=== PATIENT | female | born 1990 | race Caucasian/White ===

== ENCOUNTER → 2016-04-27 | Outpatient (CLI) | payer OTHER ==
[2016-04-27 10:47] LABS: Glucose 72 mg/dL (74-99); Non-African American GFR(MDRD) >60 (>60 ml/min/1.73 sqM)
[2016-04-27 10:48] LABS: Appearance,Urine Clear (Clear); Bacteria,Urine Rare /hpf; Bilirubin,Urine Negative (Negative); CH 31.9; CHCM 35.2; Glucose,Urine (UA) Negative (Negative); HCT 36.1 % (34.0-46.0); HDW 2.47; HGB 12.1 gm/dL (11.4-16.0); Ketones,Urine Negative (Negative); Leukocyte Esterase,Urine Moderate (Negative); MCH 30.6 pg (25.0-35.0); MCHC 33.6 g/dL (31.0-37.0); MCV 91.1 fL (80.0-100.0); Mean Platelet Volume 7.4; Mucus,Urine Rare /hpf; Nitrite,Urine Negative (Negative); PH, Urine 6.5 (5.0-8.0); Particle Count 4790; Protein,Urine Negative (Negative); RBC 3.96 m/uL (3.80-5.40); RBC,Urine 32 /hpf (0-5); RDW 12.8 % (11.5-15.5); Specific Gravity,Urine 1.017 (1.001-1.035); Squamous Epithelial Cell,Urine 8 /hpf (0-4); UA Billing (MACRO vs. MICRO) MICRO; Urobilinogen,Urine <2.0 mg/dL (<2.0); WBC 9.9 k/uL (3.8-10.6); WBC,Urine 21 /hpf (0-5)
[2016-04-27 11:16] LABS: Hepatitis B Surface Ag Index 0.04
[2016-04-27 15:50] LABS: Treponemal Ab Non-Reactive (Non-Reactive)
[2016-04-28 09:39] LABS: HIV-1/HIV-2 Ab Screen NONREAC (NON REAC)
== END | disposition home or self-care (01) ==
LOC: LABWHC1 10:00
PROVIDERS: ATTEND Obstetrics & Gynecology
DX: O26.812 Pregnancy related exhaustion and fatigue, second trimester (principal); O99.89 Other specified diseases and conditions complicating pregnancy, childbirth and the puerperium; R35.0 Frequency of micturition; Z3A.00 Weeks of gestation of pregnancy not specified
CPT/HCPCS: 36415; 81001; 82565; 82947; 85027; 86762; 86777; 86778; 86780; 86850; 86900; 86901; 87077; 87086; 87186; 87340; 87389

== ENCOUNTER 2016-04-30 16:22 | Emergency (ER) | payer OTHER ==
[2016-04-30 16:42] VITALS: BP 114/70; PULSE 80; RESP 16; TEMP 97.3
--- NOTE | 2016-04-30 17:17 | ED ---
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 She had one previous episode years ago. She's had no fever or chills states that a recent UTI and so has some dysuria and was treated with Macrobid. She has no associated chest pain shortness breath denies being fatigued last 8 about 4 hours ago. Said no history of gestational diabetes or preeclampsia. She is had 2 previous normal deliveries. She denies any chest pain shortness breath palpitations. No spotting or cramping. - Related Data Previous Rx's Medication Instructions Recorded Cephalexin [Keflex] 500 mg PO Q8HR #30 cap 04/30/16 Allergies Allergy/AdvReac Type Severity Reaction Status Date / Time nifedipine [From Procardia] Allergy TACHYCARDIA Verified 04/30/16 16:53 Review of Systems ROS Statement: Those systems with pertinent positive or pertinent negative responses have been documented in the HPI. ROS Other: All systems not noted in ROS Statement are negative. Constitutional: Denies: fever, chills Eyes: Denies: eye pain ENT: Denies: ear pain, throat pain Respiratory: Denies: cough Cardiovascular: Denies: chest pain Gastrointestinal: Denies: abdominal pain, nausea, vomiting, constipation Skin: Denies: rash Neurological: Denies: headache, weakness, numbness Psychiatric: Denies: anxiety, depression Hematological/Lymphatic: Denies: easy bleeding, easy bruising Past Medical History Past Medical History: No Reported History Additional Past Medical History / Comment(s): uti History of Any Multi-Drug Resistant Organisms: None Reported Past Surgical History: Ear Surgery Past Psychological History: Bipolar, Depression Smoking Status: Current every day smoker Past Alcohol Use History: Occasional Past Drug Use History: None Reported General Exam Limitations: no limitations General appearance: alert, in no apparent distress Head exam: Present: atraumatic Eye exam: Present: PERRL, EOMI ENT exam: Present: normal oropharynx, mucous membranes moist, TM's normal bilaterally Respiratory exam: Present: normal lung sounds bilaterally Cardiovascular Exam: Present: normal rhythm, normal heart sounds GI/Abdominal exam: Present: soft. Absent: tenderness Extremities exam: Present: normal inspection Neurological exam: Present: alert, CN II-XII intact Psychiatric exam: Present: normal affect Skin exam: Present: warm, dry Course Vital Signs 04/30/16 16:39 Temperature 97.3 F L Pulse Rate 80 Respiratory 16 Rate Blood Pressure 114/70 O2 Sat by Pulse 100 Oximetry Medical Decision Making - Medical Decision Making EKG and laboratory satisfactory except for UTI she is 17 weeks this is classic of a vasovagal episode will change her to cephalexin. Urine culture shows Klebsiella pneumonia with good sensitivity. - Lab Data Result diagrams: 04/30/16 17:23 04/30/16 17:23 Lab Results 04/30/16 04/30/16 04/30/16 Range/Units 17:23 17:23 17:23 WBC 10.7 H (3.8-10.6) k/uL RBC 3.89 (3.80-5.40) m/uL Hgb 12.0 (11.4-16.0) gm/dL Hct 35.2 (34.0-46.0) % MCV 90.5 (80.0-100.0) fL MCH 30.7 (25.0-35.0) pg MCHC 33.9 (31.0-37.0) g/dL RDW 12.9 (11.5-15.5) % Plt Count 307 (150-450) k/uL Neutrophils % 73 % Lymphocytes % 19 % Monocytes % 6 % Eosinophils % 1 % Basophils % 0 % Neutrophils # 7.9 H (1.3-7.7) k/uL Lymphocytes # 2.0 (1.0-4.8) k/uL Monocytes # 0.6 (0-1.0) k/uL Eosinophils # 0.1 (0-0.7) k/uL Basophils # 0.0 (0-0.2) k/uL Sodium 137 (137-145) mmol/L Potassium 4.0 (3.5-5.1) mmol/L Chloride 104 (98-107) mmol/L Carbon Dioxide 24 (22-30) mmol/L Anion Gap 9 mmol/L BUN 9 (7-17) mg/dL Creatinine 0.54 (0.52-1.04) mg/dL Est GFR (MDRD) Af Amer >60 (>60 ml/min/1.73 sqM) Est GFR (MDRD) Non-Af >60 (>60 ml/min/1.73 sqM) Glucose 83 (74-99) mg/dL Calcium 9.1 (8.4-10.2) mg/dL Urine Color Yellow Urine Appearance Cloudy H (Clear) Urine pH 6.5 (5.0-8.0) Ur Specific [place] 1.020 (1.001-1.035) Urine Protein Trace H (Negative) Urine Glucose (UA) Negative (Negative) Urine Ketones Negative (Negative) Urine Blood Moderate H (Negative) Urine Nitrate Negative (Negative) Urine Bilirubin Negative (Negative) Urine Urobilinogen <2.0 (<2.0) mg/dL Ur Leukocyte Esterase Moderate H (Negative) Urine RBC 21 H (0-5) /hpf Urine WBC 92 H (0-5) /hpf Ur Squamous Epith Cells 6 H (0-4) /hpf Amorphous Sediment Occasional H (None) /hpf Urine Bacteria Occasional H (None) /hpf Urine Mucus Few H (None) /hpf Urine Sperm Rare (None) /hpf - EKG Data -: EKG Interpreted by Me (EKG 04/30/2016 1726 ventricular rate 80 bpm, NE interval 126 ms, QRS durati) Disposition Clinical Impression: Vasovagal episode, UTI (urinary tract infection), Disposition: HOME SELF-CARE Condition: Good Instructions: Syncope (ED), Urinary Tract Infection in Women (ED) Prescriptions: Cephalexin [Keflex] 500 mg PO Q8HR #30 cap Time of Disposition: 17:58
[2016-04-30 17:33] LABS: Basophils % (A) 0 %; CH 31.8; CHCM 35.4; Eosinophils # (A) 0.1 k/uL (0-0.7); Eosinophils % (A) 1 %; HCT 35.2 % (34.0-46.0); HDW 2.49; Luc # (Auto) 0.14; Luc % (Auto) 1; Lymphocytes % (A) 19 %; MCH 30.7 pg (25.0-35.0); MCHC 33.9 g/dL (31.0-37.0); MCV 90.5 fL (80.0-100.0); Mean Platelet Volume 7.3; Monocytes # (A) 0.6 k/uL (0-1.0); Monocytes % (A) 6 %; Neutrophils # (A) 7.9 k/uL (1.3-7.7); Neutrophils % (A) 73 %; RBC 3.89 m/uL (3.80-5.40); RDW 12.9 % (11.5-15.5); WBC 10.7 k/uL (3.8-10.6); WBC (Perox) 10.65
[2016-04-30 17:41] LABS: Anion Gap 9 mmol/L; Blood Urea Nitrogen 9 mg/dL (7-17); Calcium 9.1 mg/dL (8.4-10.2); Carbon Dioxide 24 mmol/L (22-30); Chloride 104 mmol/L (98-107); Glucose 83 mg/dL (74-99); Non-African American GFR(MDRD) >60 (>60 ml/min/1.73 sqM); Sodium 137 mmol/L (137-145)
[2016-04-30 17:46] LABS: Amorphous Sediment,Urine Occasional /hpf; Appearance,Urine Cloudy (Clear); Bacteria,Urine Occasional /hpf; Bilirubin,Urine Negative (Negative); Glucose,Urine (UA) Negative (Negative); Ketones,Urine Negative (Negative); Leukocyte Esterase,Urine Moderate (Negative); Mucus,Urine Few /hpf; Nitrite,Urine Negative (Negative); PH, Urine 6.5 (5.0-8.0); Particle Count 6840; Protein,Urine Trace (Negative); RBC,Urine 21 /hpf (0-5); Sperm,Urine Rare /hpf; Squamous Epithelial Cell,Urine 6 /hpf (0-4); UA Billing (MACRO vs. MICRO) MICRO; Urobilinogen,Urine <2.0 mg/dL (<2.0); WBC,Urine 92 /hpf (0-5)
== END 2016-04-30 18:04 | disposition home or self-care (01) ==
LOC: EC 16:22
DX: O23.42 Unspecified infection of urinary tract in pregnancy, second trimester (principal); O99.332 Smoking (tobacco) complicating pregnancy, second trimester; R55 Syncope and collapse; F17.200 Nicotine dependence, unspecified, uncomplicated; Z3A.17 17 weeks gestation of pregnancy; Z88.8 Allergy status to other drugs, medicaments and biological substances
CPT/HCPCS: 36415; 80048; 81001; 85025; 93005; 99284

== ENCOUNTER 2016-05-07 15:49 | Emergency (ER) | payer OTHER ==
[2016-05-07] MEDS ORDERED: SODIUM CHLORIDE 0.9% 1,000 ML IV ONE (19:06)
[2016-05-07] MEDS ORDERED: ACETAMINOPHEN IV (For NPO) 1,000 MG in EMPTY BAG 1 BAG IVPB STA (19:06)
[2016-05-07] MEDS ORDERED: ONDANSETRON 4 MG/2 ML VIAL IVP STA (19:06)
[2016-05-07 19:39] LABS: Basophils % (A) 0 %; CH 31.8; CHCM 35.3; Eosinophils # (A) 0.1 k/uL (0-0.7); Eosinophils % (A) 1 %; HCT 37.3 % (34.0-46.0); HDW 2.42; HGB 12.8 gm/dL (11.4-16.0); Luc # (Auto) 0.04; Luc % (Auto) 1; Lymphocytes # (A) 0.5 k/uL (1.0-4.8); Lymphocytes % (A) 6 %; MCHC 34.3 g/dL (31.0-37.0); MCV 90.3 fL (80.0-100.0); Mean Platelet Volume 7.2; Monocytes # (A) 0.4 k/uL (0-1.0); Monocytes % (A) 4 %; Neutrophils # (A) 8.5 k/uL (1.3-7.7); Neutrophils % (A) 89 %; RBC 4.13 m/uL (3.80-5.40); RDW 12.8 % (11.5-15.5); WBC 9.6 k/uL (3.8-10.6); WBC (Perox) 9.99
[2016-05-07 19:47] LABS: ALT 30 U/L (9-52); AST 22 U/L (14-36); Alkaline Phosphatase 63 U/L (38-126); Anion Gap 10 mmol/L; Blood Urea Nitrogen 12 mg/dL (7-17); Calcium 8.9 mg/dL (8.4-10.2); Carbon Dioxide 23 mmol/L (22-30); Chloride 104 mmol/L (98-107); Glucose 95 mg/dL (74-99); Non-African American GFR(MDRD) >60 (>60 ml/min/1.73 sqM); Potassium 4.4 mmol/L (3.5-5.1); Sodium 137 mmol/L (137-145); Total Bilirubin 0.5 mg/dL (0.2-1.3); Total Protein 6.7 g/dL (6.3-8.2)
[2016-05-07 19:50] VITALS: RESP 16
--- NOTE | 2016-05-07 20:30 | US ---
EXAMINATION TYPE: US abdomen limited DATE OF EXAM: 05/07/2016 8:09 PM COMPARISON: NONE CLINICAL HISTORY: Pain. RUQ pain, 18 weeks EXAM MEASUREMENTS: Liver Length: 14.0 cm Gallbladder Wall: 0.1 cm CBD: 0.3 cm Right Kidney: 10.2 x 6.0 x 4.9 cm TECHNOLOGIST IMPRESSION: Pancreas: wnl in its visualized portions. Liver: wnl Gallbladder: wnl Evidence for sonographic Maurice's sign: neg CBD: wnl Right Kidney: wnl There is no ascites. IMPRESSION: No significant abnormality is evident
[2016-05-07 21:10] VITALS: BP 109/67; PULSE 96; TEMP 98.7
[2016-05-07 21:16] LABS: Appearance,Urine Clear (Clear); Bilirubin,Urine Negative (Negative); Glucose,Urine (UA) Negative (Negative); Ketones,Urine 1+ (Negative); Leukocyte Esterase,Urine Negative (Negative); Mucus,Urine Rare /hpf; Nitrite,Urine Negative (Negative); Particle Count 740; Protein,Urine Negative (Negative); RBC,Urine 5 /hpf (0-5); Squamous Epithelial Cell,Urine 1 /hpf (0-4); UA Billing (MACRO vs. MICRO) MICRO; Urobilinogen,Urine <2.0 mg/dL (<2.0); WBC,Urine 1 /hpf (0-5)
--- NOTE | 2016-05-07 22:09 | ED ---
Abdominal Pain HPI - General Chief Complaint: Abdominal Pain Stated Complaint: Abdominal and back pain (18 weeks ) Time Seen by Provider: 05/07/16 18:53 Source: patient Mode of arrival: ambulatory Limitations: no limitations - History of Present Illness Initial Comments: 26-year-old female at 18 weeks presenting for evaluation of RUQ abdominal pain and right flank pain that started this morning at 0400 waking her from sleep. She describes it as a constant dullness with intermittent sharpness with radiation from her right flank to the RUQ and down her side. There is associated nausea and vomiting. She denies vaginal bleeding or discharge or dysuria although she was recently treated for a UTI and is still finishing her antibiotics. 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 - Related Data Home Medications Medication Instructions Recorded Confirmed Calcium Carbonate [Tums] 500 mg PO QID PRN 05/07/16 05/07/16 Cephalexin [Keflex] 500 mg PO QID 05/07/16 05/07/16 Magnesium Hydroxide [Milk of 10 mg PO DAILY 05/07/16 05/07/16 Magnesia Concentrate] Pediatric Multivit Comb #25/FA 600 mcg PO DAILY 05/07/16 05/07/16 [Flintstones Multivit Chew Tab] Previous Rx's Medication Instructions Recorded Acetaminophen Tab [Tylenol Tab] 500 mg PO Q6H #20 tablet 05/07/16 Ondansetron Odt [Zofran Odt] 4 mg PO Q8HR PRN #12 tab 05/07/16 Allergies Allergy/AdvReac Type Severity Reaction Status Date / Time nifedipine [From Procardia] Allergy TACHYCARDIA Verified 05/07/16 18:50 Review of Systems ROS Statement: Those systems with pertinent positive or pertinent negative responses have been documented in the HPI. General: Patient denies fever, chills but associated nausea and vomiting 3 HEENT: No visual changes. No eye pain. No nasal symptoms. No dysphagia.No odynophagia. No ENT pain. Cardiac: No chest pain. No palpitations. Pulmonary; No dyspnea. Denies cough GI: Right upper quadrant abdominal pain. No diarrhea. No constipation. No bowel habit changes. No melena. No hematochezia. See general. : No dysuria.No hematuria. No hesitancy. No urgency. No renal lithiasis history. Recent UTI. Musculoskeletal: No musculoskeletal pain. Right flank/pain. Orthopedic: Denies fracture history. Integumentary: Denies rash. Denies pruritis. Neurologic: Denies any lateralizing weakness. Denies numbness. Denies tingling. No seizure activity. Denies TIA or CVA. ROS Other: All systems not noted in ROS Statement are negative. Past Medical History Past Medical History: No Reported History Additional Past Medical History / Comment(s): uti History of Any Multi-Drug Resistant Organisms: None Reported Past Surgical History: Ear Surgery Past Psychological History: Bipolar, Depression Smoking Status: Current every day smoker Past Alcohol Use History: None Reported Past Drug Use History: None Reported General Exam - General Exam Comments Initial Comments: General: The patient is awake and alert, in no distress, and does not appear acutely ill. Eye: Pupils are equal, round and reactive to light, extra-ocular movements are intact; there is normal conjunctiva bilaterally. No signs of icterus. Ears, nose, mouth and throat: There are moist mucous membranes and no oral lesions. Neck: The neck is supple, there is no tenderness or JVD. Cardiovascular: There is a regular rate and rhythm. No murmur, rub or gallop is appreciated. Respiratory: Lungs are clear to auscultation, respirations are non-labored, breath sounds are equal. No wheezes, stridor, rales, or rhonchi. Gastrointestinal: Soft, gravid abdomen with right upper quadrant tenderness without Maurice sign, without masses or organomegaly noted. There is no rebound or guarding present. Right-sided CVA tenderness Back: There is no tenderness to palpation in the midline. There is no obvious deformity. No rashes noted. Musculoskeletal: Normal ROM, no tenderness, There is no pedal edema. There is no calf tenderness or swelling. Sensation intact. Pulses equal bilaterally 2+. Neurological: CN II-XII intact, There are no obvious motor or sensory deficits. Coordination appears grossly intact. Speech is normal. Skin: Skin is warm and dry and no rashes or lesions are noted. Psychiatric: Cooperative, appropriate mood & affect, normal judgment. Limitations: no limitations Course Vital Signs 05/07/16 05/07/16 05/07/16 16:10 19:46 20:22 Temperature 98.0 F 98.3 F 98.8 F Pulse Rate 111 H 89 82 Respiratory 18 16 16 Rate Blood Pressure 102/58 87/48 97/52 O2 Sat by Pulse 98 99 98 Oximetry 05/07/16 21:10 Temperature 98.7 F Pulse Rate 96 Respiratory 16 Rate Blood Pressure 109/67 O2 Sat by Pulse 97 Oximetry Medical Decision Making - Medical Decision Making 26-year-old female who is at 18 weeks presented for evaluation of right flank pain and right upper quadrant pain that radiates down into her lower abdomen. She denies any history of gallbladder disease or kidney stones but these remain highest on the differential. Physical examination reveals right CVA tenderness and right upper quadrant abdominal tenderness without Maurice sign. She denies any vaginal bleeding or discharge. We'll obtain labs, urine, and abdominal ultrasound and provide the patient with pain control. Labs revealed no significant abnormalities including a negative lipase and LFTs within normal limits. Urinalysis did reveal 1+ urine ketones and moderate urine blood without bacteriuria. Abdominal ultrasound showed no significant abnormality with normal gallbladder and common bile duct measuring 0.3 cm and negative sonographic Maurice sign. Right kidney within normal limits without hydronephrosis or hydroureter. The patient was informed of these results and on reevaluation she had some mild improvement in her symptoms. Through shared decision making it was decided that she would be discharged to follow-up with her primary care physician and OB /[facility]. She was further informed that she must return to this facility within 24- 48 hours if she is unable to see either her primary care physician or FIRE EQUIPMENT OPERATOR regardless of resolution of symptoms. The patient acknowledged an understanding of this information and agreed with this plan of care. - Lab Data Result diagrams: 05/07/16 19:26 05/07/16 19:26 Lab Results 05/07/16 05/07/16 05/07/16 Range/Units 19:26 19:26 21:00 WBC 9.6 (3.8-10.6) k/uL RBC 4.13 (3.80-5.40) m/uL Hgb 12.8 (11.4-16.0) gm/dL Hct 37.3 (34.0-46.0) % MCV 90.3 (80.0-100.0) fL MCH 31.0 (25.0-35.0) pg MCHC 34.3 (31.0-37.0) g/dL RDW 12.8 (11.5-15.5) % Plt Count 301 (150-450) k/uL Neutrophils % 89 % Lymphocytes % 6 % Monocytes % 4 % Eosinophils % 1 % Basophils % 0 % Neutrophils # 8.5 H (1.3-7.7) k/uL Lymphocytes # 0.5 L (1.0-4.8) k/uL Monocytes # 0.4 (0-1.0) k/uL Eosinophils # 0.1 (0-0.7) k/uL Basophils # 0.0 (0-0.2) k/uL Sodium 137 (137-145) mmol/L Potassium 4.4 (3.5-5.1) mmol/L Chloride 104 (98-107) mmol/L Carbon Dioxide 23 (22-30) mmol/L Anion Gap 10 mmol/L BUN 12 (7-17) mg/dL Creatinine 0.54 (0.52-1.04) mg/dL Est GFR (MDRD) Af Amer >60 (>60 ml/min/1.73 sqM) Est GFR (MDRD) Non-Af >60 (>60 ml/min/1.73 sqM) Glucose 95 (74-99) mg/dL Calcium 8.9 (8.4-10.2) mg/dL Total Bilirubin 0.5 (0.2-1.3) mg/dL AST 22 (14-36) U/L ALT 30 (9-52) U/L Alkaline Phosphatase 63 (38-126) U/L Total Protein 6.7 (6.3-8.2) g/dL Albumin 3.6 (3.5-5.0) g/dL Lipase 22 L (23-300) U/L Urine Color Light Yellow Urine Appearance Clear (Clear) Urine pH 6.0 (5.0-8.0) Ur Specific [place] 1.010 (1.001-1.035) Urine Protein Negative (Negative) Urine Glucose (UA) Negative (Negative) Urine Ketones 1+ H (Negative) Urine Blood Moderate H (Negative) Urine Nitrate Negative (Negative) Urine Bilirubin Negative (Negative) Urine Urobilinogen <2.0 (<2.0) mg/dL Ur Leukocyte Esterase Negative (Negative) Urine RBC 5 (0-5) /hpf Urine WBC 1 (0-5) /hpf Ur Squamous Epith Cells 1 (0-4) /hpf Urine Mucus Rare H (None) /hpf Disposition Clinical Impression: Flank pain, Hematuria Disposition: HOME SELF-CARE Condition: Stable Instructions: Abdominal Pain in (ED), Kidney Stones (ED), Flank Pain (ED) Additional Instructions: Please use medication as discussed. Please follow up with family doctor if symptoms have not improved over the next two days. Please return to the emergency room if your symptoms increase or worsen or for any other concerns. Prescriptions: Acetaminophen Tab [Tylenol Tab] 500 mg PO Q6H #20 tablet Ondansetron Odt [Zofran Odt] 4 mg PO Q8HR PRN #12 tab PRN Reason: Nausea Referrals: Aren Faria MD [Primary Care Provider] - 1-2 days Time of Disposition: 22:09
== END 2016-05-07 22:05 | disposition home or self-care (01) ==
LOC: EC 15:49
DX: O26.892 Other specified pregnancy related conditions, second trimester (principal); R31.9 Hematuria, unspecified; R10.11 Right upper quadrant pain; R11.2 Nausea with vomiting, unspecified; Z3A.18 18 weeks gestation of pregnancy; O99.332 Smoking (tobacco) complicating pregnancy, second trimester; Z88.8 Allergy status to other drugs, medicaments and biological substances
CPT/HCPCS: 36415; 80053; 83690; 85025; 81001; 76705; 96374; 96375; 96361; 99284; J2405; J0131

== ENCOUNTER → 2016-05-16 | Outpatient (CLI) | payer OTHER ==
[2016-05-16 14:57] LABS: Uric Acid 3.4 mg/dL (3.7-7.4)
== END | disposition home or self-care (01) ==
LOC: LABWHC1 14:15
PROVIDERS: ATTEND Obstetrics & Gynecology
DX: O26.619 Liver and biliary tract disorders in pregnancy, unspecified trimester (principal); K83.1 Obstruction of bile duct; Z3A.00 Weeks of gestation of pregnancy not specified
CPT/HCPCS: 36415; 82239; 84450; 84460; 84550

== ENCOUNTER → 2016-05-24 | Outpatient (CLI) | payer OTHER ==
--- NOTE | 2016-05-24 12:26 | US ---
EXAMINATION TYPE: US OB anatomy transabd DATE OF EXAM: 05/24/2016 11:14 AM COMPARISON: 03/07/2016 HISTORY: 26-year-old female LGA, survey. TECHNIQUE: Transabdominal scanning. FINDINGS: EXAM MEASUREMENTS: GESTATIONAL AGE / DATING Physician Established: (20 weeks/3 days) EDC: 10/08/2016 Dates by LMP: unknown Dates by First Scan: (20 weeks/3 days) EDC: 10/08/2016 Dates by Current Scan for: (20 weeks/3 days) EDC: 10/08/2016 SURVEY IUP: Single PLACENTA: Posterior PREVIA: No previa DAT: 14.4 cm Normal CERVICAL LENGTH (transabdominal: norm > 3.0cm): 4.0 cm BIOMETRY PRESENTATION: Breech BPD: 4.4 cm 19 weeks / 3 days HC: 17.4 cm 20 weeks / 0 days AC: 16.3 cm 21 weeks / 3 days FL: 3.3 cm 20 weeks / 3 days ESTIMATED WEIGHT IN GRAMS: 374 grams ESTIMATED WEIGHT IN LBS/OZS: 0 lbs. 13 oz. WEIGHT PERCENTAGE BASED ON ESTABLISHED DATE: 63 % HC/AC: 1.07 (1.09-1.26) FL/AC: 20% HEART RATE: 139 bpm RHYTHM: Normal ANATOMY SEEN (within normal limits): Lateral Vent (< 1 cm) 0.7 cm Cisterna Magna (< 1.1 cm) 0.5 cm Nuchal Fold (< 0.6 cm) 0.3 cm Cerebellum (varies with age) 1.7 cm Choroid Plexus (bilateral) Midline Falx Cavus Septi Pellucidi Four Chamber Heart Stomach Situs Diaphragm Kidneys (bilateral) Bladder Three Vessel Cord Longitudinal Spine Transverse Spine Arms (bilateral) Legs (bilateral) ANATOMY NOT SEEN: Outflow tracts: LVOT/RVOT ANATOMY SUBOPTIMALLY VISUALIZED: Nose / Lips Cord Insert IMPRESSION: 1. Single live intrauterine with established gestational age of 20 weeks 3 days by prior da ting scan. Current ultrasound biometry is exactly concordant placing the child at the 63rd percentile for weight. 2. A few structures were either not seen or are suboptimally visualized (outflow tracts, nose/lips, c ord insertion). The patient will be brought back for a rescan of missed anatomy. 3. The HC/AC is just below the normal range; this is suspected to be incidental to technical variabil ity during measurements rather than any abnormality. This can also be reassessed on the follow-up.
== END | disposition home or self-care (01) ==
LOC: RADUSWWP 09:16
PROVIDERS: ATTEND Obstetrics & Gynecology
DX: O36.62X0 Maternal care for excessive fetal growth, second trimester, not applicable or unspecified (principal); Z3A.20 20 weeks gestation of pregnancy
CPT/HCPCS: 76811

== ENCOUNTER → 2016-06-02 | Outpatient (CLI) | payer OTHER ==
[2016-06-02 11:48] LABS: CH 31.7; CHCM 33.9; HCT 33.9 % (34.0-46.0); HGB 11.5 gm/dL (11.4-16.0); MCH 31.8 pg (25.0-35.0); MCHC 33.9 g/dL (31.0-37.0); MCV 94.1 fL (80.0-100.0); Mean Platelet Volume 6.6; RBC 3.61 m/uL (3.80-5.40); RDW 13.4 % (11.5-15.5); WBC 9.6 k/uL (3.8-10.6)
== END | disposition home or self-care (01) ==
LOC: LABWHC1 10:17
PROVIDERS: ATTEND Obstetrics & Gynecology
DX: Z34.82 Encounter for supervision of other normal pregnancy, second trimester (principal); Z3A.00 Weeks of gestation of pregnancy not specified
CPT/HCPCS: 36415; 82950; 85027

== ENCOUNTER → 2016-06-12 | Outpatient (CLI) | payer OTHER ==
--- NOTE | 2016-06-12 11:45 | US ---
EXAMINATION TYPE: US OB Call Back DATE OF EXAM: 06/12/2016 11:29 AM COMPARISON: NONE CLINICAL HISTORY: OB CALL BACK. GESTATIONAL AGE / DATING Dates by Initial Survey Scan: (20 weeks/3 days) EDC: HEART RATE: 145 bpm RHYTHM: Normal ANATOMY SEEN (second anatomic survey look): Outflow tracts:? LVOT/RVOT ANATOMY STILL NOT SEEN (requiring an additional callback appt): TECHNOLOGIST IMPRESSION: Limited due to position and movement. Another technologist scanned to verify heart structures. IMPRESSION: Exam remains limited due to position and movement. No definite abnormality identified.
== END | disposition home or self-care (01) ==
LOC: RADUSWWP 10:22
PROVIDERS: ATTEND Obstetrics & Gynecology
DX: Z36 Encounter for antenatal screening of mother (principal)

== ENCOUNTER 2016-08-08 02:05 | Outpatient (CLI) | payer OTHER ==
[2016-08-08 04:49] VITALS: BP 111/60; PULSE 89; RESP 16; TEMP 97.8
--- NOTE | 2016-09-20 08:15 | P.MSEPDOC ---
Presenting Problems - Arrival Data Date of Arrival on Unit: 08/08/16 Time of Arrival on Unit: 02:05 Mode of Transport: Wheelchair - Complaint OB-Reason for Admission/Chief Complaint: Other Comment: CONTRACTIONS AFTER INTERCOARSE AT 0100 Medical History - Information : 4 Para: 2 Term: 1 : 1 Abortions: Spontaneous or Elective: 1 Number of Living Children: 2 Review of Systems - Review of Systems Constitutional: No problems Breast: No problems ENT: No problems Cardiovascular: No problems Respiratory: No problems Gastrointestinal: No problems Genitourinary: No problems Musculoskeletal: No problems Neurological: No problems Skin: No problems Vital Signs - Temperature Temperature: 97.8 F Temperature Source: Oral - Pulse Right Sitting Brachial Pulse Rate: 89 Pulse Assessment Method: Automatic Cuff - Respirations Respiratory Rate: 16 Oxygen Delivery Method: Room Air O2 Sat by Pulse Oximetry: 99 - Blood Pressure Right Arm Sitting Blood Pressure: 111/60 Blood Pressure Mean: 77 Blood Pressure Source: Automatic Cuff Medical Screen Scoring (Pre) - Cervical Exam Dilation: 0 cm = 0 - Uterine Contractions Frequency: < 36 weeks = 6 Duration: > 40 seconds = 2 - Maternal Vital Signs Maternal Temperature: N/A Maternal Respirations: N/A - Maternal Trauma Maternal Trauma: N/A - Assessment Heart Rate - NICHD Category: Category I (Normal) = 0 NST: Reactive - Total Score Total Score (Pre): 8 Medical Screen Scoring (Post) - Cervical Exam Dilation: 0 cm = 0 Membranes: Intact - Uterine Contractions Frequency: < 36 weeks = 6 Duration: > 40 seconds = 2 Intensity: N/A - Maternal Vital Signs Maternal Temperature: N/A Maternal Respirations: N/A - Maternal Trauma Maternal Trauma: N/A - Assessment Heart Rate - NICHD Category: Category I (Normal) = 0 NST: Reactive - Total Score Total Score (Post): 8 - Post Treatment Level of Risk Post Treatment Level of Risk: Medium (6-9) Physician Notification (Post) - Physician Notified Physician Notified Date: 08/08/16 Physician Notified Time: 02:35 Physician/Practitioner Notified:: Dr Dallas Spoke With: Dr woods New Order Received: Yes Disposition - Disposition OB Disposition: Discharge to home, Written follow up instructions reviewed Discharge Date: 08/08/16 Discharge Time: 04:25 I agree with the RN Medical Screening Exam: Yes Risk & Benefit of care provided described in d/c instruction: Yes Diagnosis: RELATED CONDITIONS, UNSPECIFIED, THIRD TRIMESTER
== END 2016-08-08 04:25 | disposition home or self-care (01) ==
LOC: FBPOP 02:05
PROVIDERS: ATTEND Obstetrics & Gynecology
DX: O26.93 Pregnancy related conditions, unspecified, third trimester (principal)
CPT/HCPCS: 59025; G0463; 99213

== ENCOUNTER 2016-08-29 09:12 | Outpatient (CLI) | payer OTHER ==
[2016-08-29 11:45] VITALS: BP 112/71; PULSE 129; RESP 16; TEMP 96.1
== END 2016-08-29 11:36 | disposition home or self-care (01) ==
LOC: FBPOP 09:12
PROVIDERS: ATTEND Obstetrics & Gynecology
DX: O47.03 False labor before 37 completed weeks of gestation, third trimester (principal); Z3A.34 34 weeks gestation of pregnancy
CPT/HCPCS: 59025; G0463; 99213

== ENCOUNTER 2016-09-10 03:07 | Inpatient (IN) | payer OTHER ==
[2016-09-10] MEDS ORDERED: TERBUTALINE 1 MG/ML VIAL SQ PRN (04:10)
[2016-09-10] MEDS ORDERED: OXYTOCIN 10 UNIT/ML 1 ML VIAL IM PRN (04:10)
[2016-09-10] MEDS ORDERED: METHYLERGONOVINE 0.2 MG/ML 1 ML AMP IM PRN (04:10)
[2016-09-10] MEDS ORDERED: CARBOPROST TROMETHAMINE 250 MCG/ML 1 ML AMP IM PRN (04:10)
[2016-09-10] MEDS ORDERED: AMPICILLIN 2,000 MG in SODIUM CHLORIDE 0.9% 100 ML IVPB STA (04:10)
[2016-09-10] MEDS ORDERED: LIDOCAINE 1% (PF) 10 MG/ML (30 ML SDV) SQ PRN (04:10)
[2016-09-10] MEDS ORDERED: LACTATED RINGERS 1,000 ML IV SCH ×2 (04:15)
[2016-09-10 04:38] LABS: Basophils # (A) 0.1 k/uL (0-0.2); Basophils % (A) 1 %; CH 30.6; CHCM 34.2; Eosinophils # (A) 0.1 k/uL (0-0.7); Eosinophils % (A) 1 %; HCT 34.7 % (34.0-46.0); HDW 2.93; HGB 11.6 gm/dL (11.4-16.0); Luc # (Auto) 0.28; Luc % (Auto) 2; Lymphocytes # (A) 2.5 k/uL (1.0-4.8); Lymphocytes % (A) 22 %; MCH 29.9 pg (25.0-35.0); MCHC 33.3 g/dL (31.0-37.0); Mean Platelet Volume 7.4; Monocytes # (A) 0.6 k/uL (0-1.0); Monocytes % (A) 5 %; Neutrophils # (A) 7.8 k/uL (1.3-7.7); Neutrophils % (A) 68 %; RBC 3.86 m/uL (3.80-5.40); RDW 12.8 % (11.5-15.5); WBC 11.5 k/uL (3.8-10.6); WBC (Perox) 10.69
[2016-09-10] MEDS ORDERED: fentaNYL (PF) 50 MCG/ML 5 ML AMP ONE (04:47)
[2016-09-10] MEDS ORDERED: PHENYLEPHRINE-0.9% NACL SYG 1 MG/10 ML SYRINGE ONE (04:47)
[2016-09-10] MEDS ORDERED: BUPIVACAINE (PF) 0.25% 30 ML VIAL ONE (04:47)
[2016-09-10] MEDS ORDERED: SODIUM CHLORIDE 0.9% 100 ML BAG ONE (04:47)
[2016-09-10] MEDS ORDERED: BUPIVACAINE (PF) 0.25% 25 ML, fentaNYL (PF) 200 MCG in SODIUM CHLORIDE 0.9% 71 ML EPIDURAL ONE (05:04)
--- NOTE | 2016-09-10 05:15 | P.HPOB ---
History of Present Illness H&P Date: 09/10/16 Chief Complaint: Contractions. This patient is a 26-year-old 4 para 2 female estimated date of confinement 10/08/2016 estimated gestational age 36-0/7 weeks gestation who called earlier this morning with complaints of regular painful contractions and some vaginal bleeding. Patient's is per Dr. Zavala appears be complicated by labor. Most recently in the office patient was 2 cm dilated is now 5 cm dilated in active labor. Also. She did have some social issues during this . Patient does have a history of previous delivery. Review of Systems Constitutional: Denies chills, Denies fever Ears, nose, mouth and throat: Denies headache, Denies sore throat Cardiovascular: Denies chest pain, Denies shortness of breath Respiratory: Denies cough Gastrointestinal: Reports heartburn Genitourinary: Reports Menstruation: Reports amenorrhea Musculoskeletal: Denies myalgias Past Medical History Past Medical History: No Reported History Additional Past Medical History / Comment(s): Patient has a history of bipolar disorder with anxiety and depression and history of suicide attempt in the past. Patient has a history of asthma. History of Any Multi-Drug Resistant Organisms: None Reported Past Surgical History: Ear Surgery Past Anesthesia/Blood Transfusion Reactions: No Reported Reaction Past Psychological History: Bipolar, Depression Smoking Status: Current every day smoker Past Alcohol Use History: None Reported Past Drug Use History: None Reported Medications and Allergies Home Medications Medication Instructions Recorded Confirmed Type Citalopram Hydrobromide [CeleXA] 10 mg PO DAILY 07/04/16 09/10/16 History Pnv,Calcium 72/Iron/Folic Acid 1 each PO DAILY 07/04/16 09/10/16 History [ Plus Tablet] Allergies Allergy/AdvReac Type Severity Reaction Status Date / Time nifedipine [From Procardia] Allergy TACHYCARDIA Verified 09/10/16 03:13 Exam - Vital Signs Vital signs: Vital Signs Temp Pulse Resp BP 09/10/16 03:14 96.3 F L 112 H 16 134/84 Intake and Output 09/09/16 09/09/16 09/10/16 14:59 22:59 06:59 Other: Weight 92.079 kg Patient Weight 09/10/16 06:59 Weight 92.079 kg - OBG Physical Exam Abdomen: bowel sounds normal, no diffuse tenderness, no bruit present, no guarding noted, no hepatomegaly, no splenomegaly, no mass Vulva: both: normal Vagina: normal moisture, no discharge Cervix: Cervix is 5 cm dilated 90% effaced -2 station. Cervix: no lesion, no discharge Uterus: enlarged (Fundal height is consistent with a 36 week gestation) Results blood work shows she is a positive, rubella immune, RPR nonreactive, hepatitis B negative, HIV nonreactive, group B strep is pending at this time, ultrasounds were normal. Glucola was 104. Result Diagrams: 09/10/16 04:30 Abnormal Lab Results - Last 24 Hours (Table) 09/10/16 Range/Units 04:30 WBC 11.5 H (3.8-10.6) k/uL Neutrophils # 7.8 H (1.3-7.7) k/uL Assessment and Plan (1) labor in third trimester with delivery Narrative/Plan: This is a 26-year-old 4 para 2 female 36-0/7 weeks' gestation with contractions and labor. Plan at this time is pain control and anticipate vaginal delivery. I am prophylactically given antibiotics due to unknown group B strep status. Status: Acute
[2016-09-10 05:55] VITALS: BMI 39.6
[2016-09-10] MEDS ORDERED: OXYTOCIN 20 UNITS/1000 ML NS 1,000 ML IV SCH (06:15)
--- NOTE | 2016-09-10 07:21 | P.PROBDLV ---
Vaginal Delivery Note - . Vaginal Delivery Note: Normal spontaneous vaginal delivery viable female Apgars 9 and 9 delivery time is 0710 hours. Please see dictated H&P for intimate details of this patient's admission. Brief summary is a pleasant 26-year-old 4 para 2 female 36 weeks gestation admitted to labor and delivery in active labor. Patient does get an epidural for pain control. She is unknown group B strep status and therefore is given antibiotics in labor. She is artificial rupture membranes at 5 cm for clear fluid. Labor is augmented with Pitocin but she quickly progresses to complete and with 2 pushes pushes the head to the perineum. The posterior perineum is supported we have controlled delivery of the 's head over the intact perineum. Mouth and nares are bulb suctioned. There is no evidence of nuchal cord. With gentle downward traction we then have deliver the anterior posterior shoulder and rest this 's body. This is a vigorous viable female infant Apgars are 9 and 9 delivery time is 0710 hours. After delivery of the the umbilical cord is doubly clamped and cut appears to be trivascular. The placenta spontaneously delivered intact. There are no lacerations and no repair is indicated. Estimated blood loss is 100 mL. and mother are stable delivery room. All counts are correct 3. There are no complications.
[2016-09-10] MEDS ORDERED: ZOLPIDEM 5 MG TAB PO PRN (07:24)
[2016-09-10] MEDS ORDERED: BENZOCAINE SPRAY 57GM TOPICAL PRN (07:24)
[2016-09-10] MEDS ORDERED: ACETAMINOPHEN TAB 325 MG TAB PO PRN (07:24)
[2016-09-10] MEDS ORDERED: SIMETHICONE 80 MG CHEWABLE PO PRN (07:24)
[2016-09-10] MEDS ORDERED: WITCH HAZEL 1 EACH MED..PAD TOPICAL PRN (07:24)
[2016-09-10] MEDS ORDERED: Acetaminophen-Codeine 300-30mg TAB PO PRN ×2 (07:24)
[2016-09-10] MEDS ORDERED: BISACODYL 10 MG SUPP RECTAL PRN (07:24)
[2016-09-10] MEDS ORDERED: diphenhydrAMINE 25 MG CAP PO PRN (07:24)
[2016-09-10] MEDS ORDERED: LANOLIN CREAM 5 GM TUBE TOPICAL PRN (07:24)
[2016-09-10] MEDS ORDERED: HYDROCORTISONE 2.5% RECTAL CREAM 30 GM TUBE RECTAL PRN (07:24)
[2016-09-10] MEDS ORDERED: diphenhydrAMINE 50 MG/ML 1 ML VIAL IVP PRN (07:24)
[2016-09-10] MEDS ORDERED: AMPICILLIN 1,000 MG in SODIUM CHLORIDE 0.9% 50 ML IVPB SCH (08:11)
[2016-09-10] MEDS: SENNOSIDES-DOCUSATE SODIUM 1 EACH TAB PO SCH ×2 (08:21→19:57)
[2016-09-10] MEDS: IBUPROFEN 600 MG TAB PO PRN ×3 (09:04→23:01)
[2016-09-11] MEDS: IBUPROFEN 600 MG TAB PO PRN ×2 (05:30→13:19)
--- NOTE | 2016-09-11 06:35 | P.PNOBGVD ---
Subjective - Subjective Patient reports: Reports appetite normal, Reports voiding normally, Reports pain well controlled, Reports ambulating normally : doing well Objective - Latest Vital Signs Latest vital signs: Vital Signs Temp Pulse Resp BP 09/11/16 00:35 98.4 F 77 16 112/58 09/11/16 00:00 77 16 09/10/16 20:00 98.0 F 76 18 104/59 09/10/16 16:00 98.5 F 78 16 91/62 09/10/16 12:00 98.3 F 94 16 91/51 09/10/16 09:16 93 16 101/61 09/10/16 08:46 97 16 96/55 09/10/16 08:16 108 H 16 100/61 09/10/16 08:01 87 16 97/56 09/10/16 07:46 90 16 105/58 09/10/16 07:28 96 16 103/57 09/10/16 07:17 97.3 F L 101 H 16 105/51 Intake and Output 09/10/16 09/10/16 09/11/16 14:59 22:59 06:59 Intake Total 3.85 800 Output Total 100 Balance -96.15 800 Intake: Intake, IV Titration 3.85 Amount Oxytocin 20 Units/1000 ml 3.85 Ns 1,000 ml @ 1 MILLIUNIT/MIN 3 mls/hr IV .Q24H [facility] Rx#:[id number] Oral 800 Output: Estimated Blood Loss 100 Other: # Voids 1 1 2 - Exam Lungs: bilateral: normal Chest: Normal S1, Normal S2 Extremities: Present: normal Abdomen: Present: normal appearance, soft Uterus: Present: normal, firm Assessment and Plan (1) labor in third trimester with delivery Narrative/Plan: Post day #1. Patient is resting without complaints and wishes to go home. Vital signs are stable and she is afebrile. Uterus is firm nontender she 's having normal lochia. I impression is a normal course. Plan is to continue routine care discharge home later today. Current Visit: Yes Status: Acute Code(s): O60.14X0 - LABOR THIRD TRI W DELIVERY THIRD TRI, UNSP SNOMED Code(s): 9396394
--- NOTE | 2016-09-11 06:39 | P.DS ---
Providers Date of admission: 09/10/16 04:04 Expected date of discharge: 09/11/16 Attending physician: Haley Zavala Primary care physician: Haley Zavala - Discharge Diagnosis(es) (1) labor in third trimester with delivery Current Visit: Yes Status: Acute Hospital Course: Please see dictated H&P on this patient's admission. Brief summary this is a 26 -year-old 4 para 2 female estimated gestational age 36 weeks who presents to labor and delivery with complaints of contractions and found to be in active labor. Patient quickly goes on to have a vaginal delivery viable female infant. Please see dictated delivery note. day #1 patient without complaints wishes to go home. Patient's felt be stable for discharge home follow up with Dr. Zavala and 6 weeks. Procedures: Normal spontaneous vaginal delivery Patient Condition at Discharge: Good Plan - Discharge Summary New Discharge Prescriptions: Acetaminophen-Codeine 300-30mg [Tylenol w/codeine #3] 1 - 2 each PO Q4HR PRN # 30 tab PRN Reason: Mild Pain exceeding Tylenol Ibuprofen [Motrin] 600 mg PO Q6HR PRN #40 tab PRN Reason: Mild Pain Or Fever >= 100.5 Discharge Medication List Citalopram Hydrobromide [CeleXA] 10 mg PO DAILY 07/04/16 [History] Pnv,Calcium 72/Iron/Folic Acid [ Plus Tablet] 1 each PO DAILY 07/04/16 [ History] Acetaminophen-Codeine 300-30mg [Tylenol w/codeine #3] 1 - 2 each PO Q4HR PRN # 30 tab 09/11/16 [Rx] Ibuprofen [Motrin] 600 mg PO Q6HR PRN #40 tab 09/11/16 [Rx] Follow up Appointment(s)/Referral(s): Haley Zavala DO [Primary Care Provider] - 6 Weeks Patient Instructions/Handouts: Vaginal Delivery (DC) Activity/Diet/Wound Care/Special Instructions: No intercourse or anything per vagina for 6 weeks. Please call if any fever, chills, excessive vaginal bleeding, and/or abdominal pain. Discharge Disposition: HOME SELF-CARE
[2016-09-11] MEDS: SENNOSIDES-DOCUSATE SODIUM 1 EACH TAB PO SCH (08:24)
[2016-09-11 08:33] VITALS: RESP 20
[2016-09-11 08:35] VITALS: BP 100/68; PULSE 90; TEMP 98
== END 2016-09-11 14:00 | disposition home or self-care (01) | DRG 775 ==
LOC: FBPOP 03:07 → 4FBP 04:04
PROVIDERS: ADMIT Obstetrics & Gynecology; ATTEND Obstetrics & Gynecology
PROC: 10E0XZZ Delivery of Products of Conception, External Approach (ICD-10-PCS; principal; 2016-09-10)
PROC: 00HU33Z Insertion of Infusion Device into Spinal Canal, Percutaneous Approach (ICD-10-PCS; 2016-09-10)
PROC: 3E0R3CZ (ICD-10-PCS; 2016-09-10)
DX: O60.14X0 Preterm labor third trimester with preterm delivery third trimester, not applicable or unspecified (principal); O99.344 Other mental disorders complicating childbirth; F31.9 Bipolar disorder, unspecified; O99.334 Smoking (tobacco) complicating childbirth; O99.52 Diseases of the respiratory system complicating childbirth; J45.909 Unspecified asthma, uncomplicated; F41.9 Anxiety disorder, unspecified; Z37.0 Single live birth; Z3A.36 36 weeks gestation of pregnancy; Z79.899 Other long term (current) drug therapy; Z91.5 Personal history of self-harm
CPT/HCPCS: 59025; 84112; 85025; 88307; 99213

== ENCOUNTER → 2017-04-13 | Outpatient (CLI) | payer OTHER ==
--- NOTE | 2017-04-13 10:26 | US ---
EXAMINATION TYPE: US OB <= 14 wk fetus DATE OF EXAM: 04/13/2017 COMPARISON: NONE CLINICAL HISTORY: Z36 confirm dates. EXAM PERFORMED: Transabdominal (TA) EXAM MEASUREMENTS: GESTATIONAL AGE / DATING Physician Established: unknown Dates by LMP: (9 weeks/2 days) EDC: 11/14/2017 Dates by First Scan: no previous Dates by Current Scan for: (9 weeks/1 days) EDC: 11/15/2017 MATERNAL ANATOMY Uterus: retroverted, 12.2 x 7.8 x 8.8 cm Right Ovary: obscured by bowel Left Ovary: 3.3 x 2.7 x 2.6 cm Post CDS / Adnexa: wnl Presence of free fluid: none Presence of corpus luteal cyst: no Presence of subchorionic bleed: no GESTATION / SURVEY CRL: 2.4 (9 weeks/1 days) Yolk Sac (normal less than 6mm): 4.5 mm Heart Rate: 176 bpm Rhythm: Normal IUP: Viable IUP Date of LMP: 02/07/2017 Beta HcG (if available): not available Single live intrauterine gestation is confirmed as gestational sac, yolk sac, and pole are iden tified. No free fluid is seen in pelvic cul-de-sac. Left ovary is seen. Right ovary is not clearly identified. There is no suspicious extraovarian adnexa l mass visualized. IMPRESSION: Single live intrauterine gestation is confirmed, mean crown-rump length is 2.4 cm corresponding to 9 week 1 day old fetus
[2017-04-13 10:57] LABS: HCT 38.1 % (34.0-46.0); HGB 12.8 gm/dL (11.4-16.0); MCH 29.7 pg (25.0-35.0); MCHC 33.7 g/dL (31.0-37.0); MCV 88.1 fL (80.0-100.0); Mean Platelet Volume 6.9; Platelet Count 341 k/uL (150-450); RBC 4.32 m/uL (3.80-5.40); RDW 12.9 % (11.5-15.5); WBC 9.8 k/uL (3.8-10.6)
[2017-04-13 11:27] LABS: Glucose 91 mg/dL (74-99)
== END | disposition home or self-care (01) ==
LOC: RADUSWWP 09:47
PROVIDERS: ATTEND Obstetrics & Gynecology
DX: Z36.9 Encounter for antenatal screening, unspecified (principal); Z34.81 Encounter for supervision of other normal pregnancy, first trimester; Z3A.09 9 weeks gestation of pregnancy
CPT/HCPCS: 36415; 76801; 82565; 82947; 85027; 86762; 86780; 86850; 86900; 86901; 87340

== ENCOUNTER 2017-06-14 05:36 | Emergency (ER) | payer OTHER ==
[2017-06-14 06:16] LABS: Basophils % (A) 0 %; Eosinophils # (A) 0.2 k/uL (0-0.7); Eosinophils % (A) 2 %; HGB 12.3 gm/dL (11.4-16.0); Lymphocytes # (A) 2.7 k/uL (1.0-4.8); Lymphocytes % (A) 27 %; MCH 29.5 pg (25.0-35.0); MCHC 34.3 g/dL (31.0-37.0); MCV 86.1 fL (80.0-100.0); Mean Platelet Volume 7.1; Monocytes # (A) 0.5 k/uL (0-1.0); Monocytes % (A) 5 %; Neutrophils # (A) 6.6 k/uL (1.3-7.7); Neutrophils % (A) 65 %; Platelet Count 336 k/uL (150-450); RBC 4.18 m/uL (3.80-5.40); RDW 13.4 % (11.5-15.5); WBC 10.1 k/uL (3.8-10.6)
--- NOTE | 2017-06-14 06:17 | ED ---
Chest Pain HPI - General Chief Complaint: Chest Pain Stated Complaint: chest pain, 18 wks preg Time Seen by Provider: 06/14/17 05:45 Source: patient Mode of arrival: ambulatory Limitations: no limitations - History of Present Illness Initial Comments: This patient is 27-year-old woman who states that she is approximately 19 weeks , and began having pleuritic chest pains a number of hours ago. She states that the pain is somewhat sharp and intermittent, being there only when she breathes. She indicates apical area of the left chest. Patient has not had any anginal type symptoms, including no dyspnea, diaphoresis, nausea or vomiting, palpitations, lightheadedness or syncope. Patient has not had any leg symptoms. No fever or chills. No cough MD Complaint: chest pain Onset/Timin -: hour(s) Onset: during rest Pain Location: other (Left apical chest) Pain Radiation: none Severity: moderate Quality: sharp Consistency: intermittent Improves With: remaining still Worsens With: inspiration Treatments Prior to Arrival: none - Related Data Home Medications Medication Instructions Recorded Confirmed Citalopram Hydrobromide [CeleXA] 10 mg PO DAILY 07/04/16 06/14/17 Pnv,Calcium 72/Iron/Folic Acid 1 each PO DAILY 07/04/16 06/14/17 [ Plus Tablet] Previous Rx's Medication Instructions Recorded Acetaminophen-Codeine 300-30mg 1 - 2 each PO Q4HR PRN #30 tab 09/11/16 [Tylenol w/codeine #3] Ibuprofen [Motrin] 600 mg PO Q6HR PRN #40 tab 09/11/16 Allergies Allergy/AdvReac Type Severity Reaction Status Date / Time nifedipine [From Procardia] Allergy TACHYCARDIA Verified 06/14/17 05:42 Review of Systems ROS Statement: Those systems with pertinent positive or pertinent negative responses have been documented in the HPI. ROS Other: All systems not noted in ROS Statement are negative. Constitutional: Denies: fever, chills Respiratory: Denies: cough, dyspnea, wheezes Cardiovascular: Reports: chest pain. Denies: palpitations, orthopnea, edema, syncope Gastrointestinal: Denies: abdominal pain, vomiting, diarrhea Genitourinary: Denies: dysuria, hematuria, abnormal menses Musculoskeletal: Denies: back pain Skin: Denies: rash Neurological: Denies: headache, weakness, numbness EKG Findings - EKG Results: EKG: interpreted by CHRISTIAN MAYBERRY, sinus rhythm (Rate approximate 97 bpm), normal axis, normal QRS, normal ST/T, no acute changes - IA, Pacemaker, Normal: Normal tracing: normal tracing Past Medical History Past Medical History: No Reported History Additional Past Medical History / Comment(s): Patient has a history of bipolar disorder with anxiety and depression and history of suicide attempt in the past. Patient has a history of asthma. History of Any Multi-Drug Resistant Organisms: None Reported Past Surgical History: Ear Surgery Past Anesthesia/Blood Transfusion Reactions: No Reported Reaction Past Psychological History: Bipolar, Depression Smoking Status: Current every day smoker Past Alcohol Use History: None Reported Past Drug Use History: None Reported - Past Family History Father Family Medical History: No Reported History General Exam Limitations: no limitations General appearance: alert, in no apparent distress Head exam: Present: atraumatic, normocephalic Eye exam: Present: normal appearance. Absent: scleral icterus, conjunctival injection ENT exam: Present: normal oropharynx Neck exam: Present: normal inspection, full ROM Respiratory exam: Present: normal lung sounds bilaterally. Absent: respiratory distress, wheezes, rales, rhonchi, stridor, chest wall tenderness Cardiovascular Exam: Present: regular rate, normal rhythm, normal heart sounds. Absent: systolic murmur, diastolic murmur, rubs, gallop GI/Abdominal exam: Present: soft, other (Gravid uterus palpable just below umbilicus). Absent: tenderness, guarding, rebound, mass Extremities exam: Present: normal inspection, normal capillary refill. Absent: pedal edema, calf tenderness Back exam: Present: normal inspection. Absent: CVA tenderness (R), CVA tenderness (L) Skin exam: Present: warm, dry, intact, normal color. Absent: rash Course Vital Signs 06/14/17 06/14/17 05:39 06:14 Temperature 97.7 F Pulse Rate 96 Respiratory 20 20 Rate Blood Pressure 125/73 O2 Sat by Pulse 99 Oximetry Disposition Clinical Impression: Pleuritic pain Disposition: HOME SELF-CARE Condition: Good Instructions: Pleurisy (ED) Referrals: Aren Faria MD [Primary Care Provider] - 1-2 days
[2017-06-14 06:31] LABS: Anion Gap 10 mmol/L; Blood Urea Nitrogen 10 mg/dL (7-17); Calcium 9.2 mg/dL (8.4-10.2); Carbon Dioxide 22 mmol/L (22-30); Chloride 106 mmol/L (98-107); Glucose 87 mg/dL (74-99); Potassium 3.9 mmol/L (3.5-5.1); Sodium 138 mmol/L (137-145)
[2017-06-14] MEDS ORDERED: ACETAMINOPHEN TAB 325 MG TAB PO STA (06:54)
[2017-06-14 07:20] VITALS: BP 137/65; PULSE 91; RESP 18; TEMP 98.1
== END 2017-06-14 07:19 | disposition home or self-care (01) ==
LOC: EC 05:36
DX: O99.89 Other specified diseases and conditions complicating pregnancy, childbirth and the puerperium (principal); R07.81 Pleurodynia; O99.342 Other mental disorders complicating pregnancy, second trimester; F31.9 Bipolar disorder, unspecified; O99.332 Smoking (tobacco) complicating pregnancy, second trimester; F17.200 Nicotine dependence, unspecified, uncomplicated; Z79.899 Other long term (current) drug therapy; Z88.8 Allergy status to other drugs, medicaments and biological substances; Z3A.19 19 weeks gestation of pregnancy
CPT/HCPCS: 36415; 80048; 85025; 85379; 93005; 99285

== ENCOUNTER → 2017-08-04 | Outpatient (CLI) | payer OTHER ==
[2017-08-04 10:08] LABS: HCT 33.6 % (34.0-46.0); HGB 11.4 gm/dL (11.4-16.0); MCH 30.6 pg (25.0-35.0); MCHC 33.9 g/dL (31.0-37.0); MCV 90.1 fL (80.0-100.0); Mean Platelet Volume 7.3; Platelet Count 300 k/uL (150-450); RBC 3.73 m/uL (3.80-5.40); WBC 12.5 k/uL (3.8-10.6)
== END | disposition home or self-care (01) ==
LOC: LABWHC1 08:42
PROVIDERS: ATTEND Obstetrics & Gynecology
DX: Z34.82 Encounter for supervision of other normal pregnancy, second trimester (principal)
CPT/HCPCS: 36415; 82950; 85027

== ENCOUNTER 2017-08-16 18:36 | Outpatient (CLI) | payer OTHER ==
[2017-08-16 19:50] VITALS: BP 121/67; PULSE 112; RESP 16; TEMP 97.5
--- NOTE | 2017-08-17 05:52 | P.MSEPDOC ---
Presenting Problems - Arrival Data Date of Arrival on Unit: 08/16/17 Time of Arrival on Unit: 18:35 Mode of Transport: Ambulatory - Complaint Comment: Contractions Medical History - Information : 5 Para: 3 Term: 1 : 2 Abortions: Spontaneous or Elective: 0 Number of Living Children: 3 - Gestational Age Gestational Age by MANJIT (wks/days): 27 Weeks and 1 Days - History Complications: Smoker Review of Systems - Review of Systems Constitutional: No problems Breast: No problems ENT: No problems Cardiovascular: No problems Respiratory: No problems Gastrointestinal: No problems Genitourinary: No problems Musculoskeletal: No problems Neurological: No problems Skin: No problems Vital Signs - Temperature Temperature: 97.5 F Temperature Source: Oral - Pulse Right Brachial Pulse Rate: 112 Pulse Assessment Method: Automatic Cuff - Respirations Respiratory Rate: 16 Oxygen Delivery Method: Room Air - Blood Pressure Right Arm Blood Pressure: 121/67 Blood Pressure Mean: 85 Blood Pressure Source: Automatic Cuff Medical Screen Scoring (Pre) - Cervical Exam Dilation: 0 cm = 0 Membranes: Intact - Uterine Contractions Frequency: N/A Duration: N/A Intensity: N/A - Maternal Vital Signs Maternal Temperature: N/A Maternal Blood Pressure: N/A Signs of Preeclampsia: N/A Maternal Respirations: N/A - Pain Assessment Pain Scale Used: Numeric (1 - 10) Pain Intensity: 0 - Assessment Baseline FHR: 130 Heart Rate - NICHD Category: Category I (Normal) = 0 Position: N/A Station: N/A - Total Score Total Score (Pre): 0 - Level of Risk Level of Risk: Low (0-5) Physician Notification (Pre) - Physician Notified Physician Notified Date: 08/16/17 Physician Notified Time: 19:20 Physician/Practitioner Notifed:: Dr. Simmons Spoke With: Dr. Simmons New Order Received: Yes - Notification Comment Comment: Report to Dr Simmons of T's, history and complaint of contractions irreg. since 1000 am and then every 3-4min since 1600. Orders recieved to check and if not. dilated and no contractions discharge home. Disposition - Disposition OB Disposition: Discharge to home Discharge Date: 08/16/17 Discharge Time: 19:35 I agree with the RN Medical Screening Exam: Yes Risk & Benefit of care provided described in d/c instruction: Yes Diagnosis: FALSE LABOR BEFORE 37 COMPLETED WEEKS OF GEST, THIRD TRI
== END 2017-08-16 19:35 | disposition home or self-care (01) ==
LOC: FBPOP 18:36
PROVIDERS: ATTEND Obstetrics & Gynecology
DX: O47.03 False labor before 37 completed weeks of gestation, third trimester (principal); O99.333 Smoking (tobacco) complicating pregnancy, third trimester; Z3A.27 27 weeks gestation of pregnancy
CPT/HCPCS: 99213

== ENCOUNTER 2017-10-03 00:40 | Inpatient (IN) | payer OTHER ==
[2017-10-03] MEDS: LACTATED RINGERS 1,000 ML IV SCH ×4 (01:46→05:03)
[2017-10-03 02:22] LABS: Appearance,Urine Clear (Clear); Bacteria,Urine Rare /hpf; Bilirubin,Urine Negative (Negative); Blood,Urine Negative (Negative); Color,Urine Light Yellow; Glucose,Urine (UA) Negative (Negative); Ketones,Urine 1+ (Negative); Leukocyte Esterase,Urine Small (Negative); Mucus,Urine Rare /hpf; Nitrite,Urine Negative (Negative); Protein,Urine Negative (Negative); RBC,Urine 1 /hpf (0-5); Squamous Epithelial Cell,Urine 1 /hpf (0-4); Urobilinogen,Urine <2.0 mg/dL (<2.0); WBC,Urine 2 /hpf (0-5)
[2017-10-03] MEDS ORDERED: BUTORPHANOL 1 MG/ML 1 ML VIAL IV ONE (03:16)
[2017-10-03] MEDS ORDERED: OXYTOCIN 10 UNIT/ML 1 ML VIAL IM PRN (06:05)
[2017-10-03] MEDS ORDERED: TERBUTALINE 1 MG/ML VIAL SQ PRN (06:05)
[2017-10-03] MEDS ORDERED: CARBOPROST TROMETHAMINE 250 MCG/ML 1 ML AMP IM PRN (06:05)
[2017-10-03] MEDS ORDERED: LIDOCAINE 1% (PF) 10 MG/ML (30 ML SDV) SQ PRN (06:05)
[2017-10-03] MEDS ORDERED: AMPICILLIN 2,000 MG in SODIUM CHLORIDE 0.9% 100 ML IVPB STA (06:05)
[2017-10-03] MEDS ORDERED: METHYLERGONOVINE 0.2 MG/ML 1 ML AMP IM PRN (06:05)
[2017-10-03] MEDS ORDERED: OXYTOCIN 20 UNITS/1000 ML NS 1,000 ML IV SCH ×2 (06:15→14:15)
[2017-10-03] MEDS ORDERED: LACTATED RINGERS 1,000 ML IV SCH (06:15)
[2017-10-03] MEDS ORDERED: BETAMET ACET-BETAMETH SOD PHOS 6 MG/ML VIAL IM SCH (06:15)
[2017-10-03 06:31] LABS: Basophils % (A) 0 %; Eosinophils # (A) 0.1 k/uL (0-0.7); Eosinophils % (A) 1 %; HCT 32.4 % (34.0-46.0); HGB 10.6 gm/dL (11.4-16.0); Lymphocytes # (A) 2.4 k/uL (1.0-4.8); Lymphocytes % (A) 18 %; MCH 28.2 pg (25.0-35.0); MCHC 32.8 g/dL (31.0-37.0); MCV 85.8 fL (80.0-100.0); Mean Platelet Volume 7.5; Monocytes # (A) 0.6 k/uL (0-1.0); Monocytes % (A) 5 %; Neutrophils # (A) 9.9 k/uL (1.3-7.7); Neutrophils % (A) 75 %; Platelet Count 287 k/uL (150-450); RBC 3.78 m/uL (3.80-5.40); RDW 12.9 % (11.5-15.5); WBC 13.1 k/uL (3.8-10.6)
[2017-10-03 06:50] VITALS: BMI 38.2
[2017-10-03] MEDS ORDERED: BUPIVACAINE (PF) 0.25% 30 ML VIAL ONE (07:05)
[2017-10-03] MEDS ORDERED: SODIUM CHLORIDE 0.9% 100 ML BAG ONE (07:05)
[2017-10-03] MEDS ORDERED: fentaNYL (PF) 50 MCG/ML 5 ML AMP ONE (07:05)
--- NOTE | 2017-10-03 09:57 | P.MSEPDOC ---
Presenting Problems - Arrival Data Date of Arrival on Unit: 10/03/17 Time of Arrival on Unit: 00:40 Mode of Transport: Wheelchair - Complaint OB-Reason for Admission/Chief Complaint: Possible Onset of Labor Medical History - Information : 5 Para: 3 Term: 1 : 2 Abortions: Spontaneous or Elective: 1 Number of Living Children: 3 - Gestational Age Gestational Age by MANJIT (wks/days): 34 Weeks and 0 Days - History Complications: Prior Review of Systems - Review of Systems Constitutional: No problems Breast: No problems ENT: No problems Cardiovascular: No problems Respiratory: No problems Gastrointestinal: No problems Genitourinary: No problems Musculoskeletal: No problems Neurological: No problems Skin: No problems Vital Signs - Temperature Temperature: 96.3 F Temperature Source: Temporal Artery Scan - Pulse Right Brachial Pulse Rate: 113 Pulse Assessment Method: Automatic Cuff - Respirations Respiratory Rate: 16 Oxygen Delivery Method: Room Air O2 Sat by Pulse Oximetry: 99 - Blood Pressure Right Arm Blood Pressure: 115/75 Blood Pressure Mean: 88 Blood Pressure Source: Automatic Cuff Medical Screen Scoring (Pre) - Cervical Exam Dilation: 1-3 cm = 1 Membranes: Intact - Uterine Contractions Frequency: < 36 weeks = 6 - Maternal Vital Signs Maternal Temperature: N/A Maternal Blood Pressure: N/A Signs of Preeclampsia: N/A - Pain Assessment Pain Location and Character: Back, Abdomen Pain Scale Used: Numeric (1 - 10) Pain Intensity: 6 Pain Description: Cramping Pain Frequency: Intermittent Pain Duration: 2 Pain Duration Units: Minutes Pain Behavior: Facial Grimacing - Assessment Baseline FHR: 135 Heart Rate - NICHD Category: Category I (Normal) = 0 NST: Reactive - Total Score Total Score (Pre): 7 - Level of Risk Level of Risk: Medium (6-9) Physician Notification (Pre) - Physician Notified Physician Notified Date: 10/03/17 Physician Notified Time: 03:12 Physician/Practitioner Notifed:: Dr. Dueñas Spoke With: Dr. Dueñas New Order Received: Yes - Notification Comment Comment: Dr. Dueñas called and given pt update. Vag exam with no change after pt c /o of. pressure. Contractions 2-6 minutes apart. Orders recieved to continue to monitor pt in. triage, pt may have one time dose of stadol, to keep fluids running, and to reevaluate. pt after 2 hrs following stadol. Disposition - Disposition OB Disposition: Admit I agree with the RN Medical Screening Exam: Yes Risk & Benefit of care provided described in d/c instruction: Yes Diagnosis: LABOR THIRD TRI W DELIVERY THIRD TRI, UNSP
[2017-10-03] MEDS ORDERED: AMPICILLIN 1,000 MG in SODIUM CHLORIDE 0.9% 50 ML IVPB SCH (10:00)
[2017-10-03] MEDS ORDERED: ROPIVACAINE 100 MG, fentaNYL (PF) 200 MCG in SODIUM CHLORIDE 0.9% 76 ML EPIDURAL ONE (11:39)
[2017-10-03] MEDS ORDERED: BENZOCAINE/MENTHOL SPRAY 1 GM/SPRAY AEROSOL TOPICAL PRN (14:04)
[2017-10-03] MEDS ORDERED: diphenhydrAMINE 50 MG/ML 1 ML VIAL IVP PRN ×2 (14:04)
[2017-10-03] MEDS ORDERED: HYDROCORTISONE 2.5% RECTAL CREAM 30 GM TUBE RECTAL PRN (14:04)
[2017-10-03] MEDS ORDERED: LANOLIN CREAM 5 GM TUBE TOPICAL PRN (14:04)
[2017-10-03] MEDS ORDERED: diphenhydrAMINE 50 MG CAP PO PRN (14:04)
[2017-10-03] MEDS ORDERED: SIMETHICONE 80 MG CHEWABLE PO PRN (14:04)
[2017-10-03] MEDS ORDERED: WITCH HAZEL 1 EACH MED..PAD TOPICAL PRN (14:04)
[2017-10-03] MEDS ORDERED: diphenhydrAMINE 25 MG CAP PO PRN (14:04)
[2017-10-03] MEDS ORDERED: ZOLPIDEM 5 MG TAB PO PRN (14:04)
[2017-10-03] MEDS: IBUPROFEN 600 MG TAB PO PRN ×2 (16:46→22:23)
--- NOTE | 2017-10-03 17:12 | P.HPOB ---
History of Present Illness H&P Date: 10/03/17 Chief Complaint: LAbor 27 year old presents at 34 weeks complaining of contractions. Her cervix upon admission to triage was 3/50/-3 and she was malgorzata every 5-10 minutes. heart tones 135-140 with moderate variability and reactive. She was admitted by Dr. Dueñas which in this she was making cervical change but the patient was still uncomfortable and was given one dose of Stadol. Her cervix then did make changed to 5 cm, 80% effaced, and -2 station. She was given a dose of Celestone and ampicillin was started. Review of Systems All systems: negative Constitutional: Denies chills, Denies fever Eyes: denies blurred vision, denies pain Ears, nose, mouth and throat: Denies headache, Denies sore throat Cardiovascular: Denies chest pain, Denies shortness of breath Respiratory: Denies cough Gastrointestinal: Denies abdominal pain, Denies diarrhea, Denies nausea, Denies vomiting Genitourinary: Denies dysuria, Denies hematuria Musculoskeletal: Denies myalgias Integumentary: Denies pruritus, Denies rash Neurological: Denies numbness, Denies weakness Psychiatric: Denies anxiety, Denies depression Endocrine: Denies fatigue, Denies weight change Past Medical History Past Medical History: No Reported History Additional Past Medical History / Comment(s): Patient has a history of bipolar disorder with anxiety and depression and history of suicide attempt in the past. Patient has a history of asthma. Obstetric history: She has had one spontaneous and 3 vaginal deliveries. She's had care with me in this since the first trimester. Blood type is A+, antibody is negative, rubella immune, hepatitis B negative, HIV negative, GBS unknown. History of Any Multi-Drug Resistant Organisms: None Reported Past Surgical History: Ear Surgery Past Anesthesia/Blood Transfusion Reactions: No Reported Reaction Past Psychological History: Bipolar, Depression Smoking Status: Current every day smoker Past Alcohol Use History: None Reported Past Drug Use History: None Reported - Past Family History Father Family Medical History: No Reported History Medications and Allergies Home Medications Medication Instructions Recorded Confirmed Type No Known Home Medications [No 08/16/17 10/03/17 History Known Home Medications] Allergies Allergy/AdvReac Type Severity Reaction Status Date / Time nifedipine [From Procardia] Allergy TACHYCARDIA Verified 10/03/17 01:00 Exam Osteopathic Statement: *. No significant issues noted on an osteopathic structural exam other than those noted in the History and Physical/Consult. - Vital Signs Vital signs: Vital Signs Temp Pulse Resp BP Pulse Ox 10/03/17 09:57 96.3 F L 113 H 16 115/75 99 10/03/17 06:19 96.3 F L 113 H 16 115/75 99 10/03/17 03:12 96.3 F L 113 H 16 115/75 99 Intake and Output 10/03/17 10/03/17 10/03/17 06:59 14:59 22:59 Output Total 300 Balance -300 Output: Estimated Blood Loss 300 Other: Weight 88.904 kg Heart: Regular rate and rhythm Lungs: Clear to auscultation bilaterally Abdomen: Soft, nontender Extremities: Negative Homans sign Results Result Diagrams: 10/03/17 06:18 Abnormal Lab Results - Last 24 Hours (Table) 10/03/17 10/03/17 Range/Units 02:05 06:18 WBC 13.1 H (3.8-10.6) k/uL RBC 3.78 L (3.80-5.40) m/uL Hgb 10.6 L (11.4-16.0) gm/dL Hct 32.4 L (34.0-46.0) % Neutrophils # 9.9 H (1.3-7.7) k/uL Urine Ketones 1+ H (Negative) Ur Leukocyte Esterase Small H (Negative) Urine Bacteria Rare H (None) /hpf Urine Mucus Rare H (None) /hpf Assessment and Plan (1) labor in third trimester Current Visit: Yes Status: Acute Code(s): O60.03 - LABOR WITHOUT DELIVERY, THIRD TRIMESTER SNOMED Code(s): 7754849 Plan: 1. Admit to family place 2. Ampicillin for GBS prophylaxis 3. Expectant management 4. Anticipate normal vaginal delivery
--- NOTE | 2017-10-03 17:14 | P.PROBDLV ---
Vaginal Delivery Note - . Vaginal Delivery Note: 27-year-old presented at 34 weeks in labor. Her cervix changed from 3 cm to 5 cm, 80% effaced, and -3 station. heart tones 135-140 with moderate variability and reactive. She is malgorzata every 5-10 minutes. She was given Celestone one dose, and also given ampicillin. Epidural was given for pain control. When she was about 8 cm dilated amniotomy was performed at 12:18 PM clear fluid noted. Her cervix was completely dilated at 1336. She pushed, and delivered a viable male over intact perineum under epidural anesthesia at 1338. Head delivered OA, nuchal cord 1 easily reduced, anterior shoulder which was the left shoulder delivered gentle downward guidance followed by posterior shoulder and rest of body, nose and mouth bulb suctioned, cord clamped and cut, infant placed mother's abdomen. Apgars 8, 8, weight 4 lbs. 12 oz. Placenta delivered spontaneously, intact with three-vessel cord at 1340. Vagina, cervix, and perineum were inspected. No lacerations noted. Estimated blood loss 150 mL.
[2017-10-03] MEDS: SENNOSIDES-DOCUSATE SODIUM 1 EACH TAB PO SCH (20:52)
[2017-10-03] MEDS: ACETAMINOPHEN TAB 325 MG TAB PO PRN (20:52)
[2017-10-04] MEDS: ACETAMINOPHEN TAB 325 MG TAB PO PRN ×2 (01:22→07:38)
[2017-10-04 01:27] VITALS: RESP 16
[2017-10-04] MEDS: IBUPROFEN 600 MG TAB PO PRN (04:22)
--- NOTE | 2017-10-04 06:37 | P.DS ---
Providers Date of admission: 10/03/17 06:05 Expected date of discharge: 10/04/17 Attending physician: Haley Zavala - Discharge Diagnosis(es) (1) labor in third trimester Current Visit: Yes Status: Resolved (2) labor in third trimester with delivery Current Visit: No Status: Acute Hospital Course: Pt presented in active labor at 34 weeks gestation. She underwent a normal vaginal delivery under epidural anesthesia. HEr PP course was uncomplicated. She will be discharged home PPD #1 in stable condition to follow up with me in 6 weeks. Plan - Discharge Summary New Discharge Prescriptions: New Acetaminophen-Codeine 300-30mg [Tylenol #3] 1 - 2 tab PO Q6H PRN #20 tablet PRN Reason: Pain Ibuprofen [Motrin] 600 mg PO Q6HR PRN #30 tab PRN Reason: Mild Pain Or Fever >= 100.5 Discharge Medication List Acetaminophen-Codeine 300-30mg [Tylenol #3] 1 - 2 tab PO Q6H PRN #20 tablet [Rx] Ibuprofen [Motrin] 600 mg PO Q6HR PRN #30 tab 10/04/17 [Rx] Follow up Appointment(s)/Referral(s): Haley Zavala DO [Doctor of Osteopathic Medicine] - 6 Weeks Discharge Disposition: HOME SELF-CARE
[2017-10-04] MEDS: SENNOSIDES-DOCUSATE SODIUM 1 EACH TAB PO SCH (07:39)
[2017-10-04 07:41] VITALS: BP 96/59; PULSE 72; TEMP 97.9
== END 2017-10-04 08:40 | disposition home or self-care (01) | DRG 775 ==
LOC: FBPOP 00:40 → 4FBP 06:05
PROVIDERS: ADMIT Obstetrics & Gynecology; ATTEND Obstetrics & Gynecology
PROC: 10E0XZZ Delivery of Products of Conception, External Approach (ICD-10-PCS; principal; 2017-10-03)
PROC: 00HU33Z Insertion of Infusion Device into Spinal Canal, Percutaneous Approach (ICD-10-PCS; 2017-10-03)
PROC: 3E0R3BZ Introduction of Anesthetic Agent into Spinal Canal, Percutaneous Approach (ICD-10-PCS; 2017-10-03)
DX: O60.14X0 Preterm labor third trimester with preterm delivery third trimester, not applicable or unspecified (principal); O99.344 Other mental disorders complicating childbirth; F17.200 Nicotine dependence, unspecified, uncomplicated; Z3A.34 34 weeks gestation of pregnancy; O69.81X0 Labor and delivery complicated by cord around neck, without compression, not applicable or unspecified; O99.334 Smoking (tobacco) complicating childbirth; F31.9 Bipolar disorder, unspecified; Z37.0 Single live birth; Z71.6 Tobacco abuse counseling; Z91.5 Personal history of self-harm; Z88.8 Allergy status to other drugs, medicaments and biological substances; J45.909 Unspecified asthma, uncomplicated; O99.52 Diseases of the respiratory system complicating childbirth; F41.9 Anxiety disorder, unspecified
CPT/HCPCS: 59025; 81001; 85025; 88307; 96360; 96361; 96365; 96372; 96375; 99214

== ENCOUNTER 2018-08-08 17:37 | Emergency (ER) | payer OTHER ==
[2018-08-08] MEDS ORDERED: LORazepam 1 MG TAB PO STA (18:14)
[2018-08-08 18:52] LABS: Basophils # (A) 0.1 k/uL (0-0.2); Basophils % (A) 1 %; Eosinophils # (A) 0.1 k/uL (0-0.7); Eosinophils % (A) 1 %; HCT 39.9 % (34.0-46.0); HGB 13.5 gm/dL (11.4-16.0); Lymphocytes # (A) 3.7 k/uL (1.0-4.8); Lymphocytes % (A) 30 %; MCH 30.6 pg (25.0-35.0); MCHC 33.7 g/dL (31.0-37.0); MCV 90.9 fL (80.0-100.0); Mean Platelet Volume 7.1; Monocytes # (A) 0.5 k/uL (0-1.0); Monocytes % (A) 4 %; Neutrophils # (A) 7.6 k/uL (1.3-7.7); Neutrophils % (A) 63 %; Platelet Count 368 k/uL (150-450); RBC 4.39 m/uL (3.80-5.40); RDW 12.8 % (11.5-15.5); WBC 12.1 k/uL (3.8-10.6)
[2018-08-08 18:59] LABS: ALT 26 U/L (9-52); AST 18 U/L (14-36); Albumin 4.5 g/dL (3.5-5.0); Alkaline Phosphatase 93 U/L (38-126); Anion Gap 9 mmol/L; Blood Urea Nitrogen 13 mg/dL (7-17); Calcium 9.7 mg/dL (8.4-10.2); Carbon Dioxide 23 mmol/L (22-30); Chloride 107 mmol/L (98-107); Glucose 89 mg/dL (74-99); Potassium 3.9 mmol/L (3.5-5.1); Sodium 139 mmol/L (137-145); Total Bilirubin 0.4 mg/dL (0.2-1.3); Total Protein 7.7 g/dL (6.3-8.2)
--- NOTE | 2018-08-08 19:05 | ED ---
General Adult HPI - General Chief complaint: Abdominal Pain Stated complaint: Back and side pain Time Seen by Provider: 08/08/18 17:53 Source: patient Mode of arrival: ambulatory Limitations: no limitations - History of Present Illness Initial comments: 28yo who denies past medical history presenting today for chief complaint of the by primary care provider. Patient states she presented to her primary care provider because she thought she had a pulled muscle in her back. Patient states states she has had a dull constant pain in the low back that felt similar to period cramping, she states she feels her period cramping in the lower back. Patient states at times patient states that she has had groin pain on the right side. Pt states at times it feels like it shoots down the right leg. Pt states that when she went to the doctor for evaluation he told her he thought she had a slipped disc in the back. He states he performed an abdominal exam and noticed right lower quadrant tenderness, and sent her to the ER for evaluation of her ovaries and appendix. Patient denies any fever, nausea, changes in appetite she denies diarrhea. Patient states the pain is positional, she states she oftentimes cannot find a comfortable position at night to sleep and. Patient denies history of clotting disorder, diabetes high blood pressure IV drug use. Patient denies any chest pain shortness of breath was or pallor of the extremity. Patient denies any injury or trauma to the back she denies any urinary retention loss of bowel or bladder control numbness tingling or loss sensation of the lower extremities. Patient denies any dysuria urgency frequ ency hematuria . Pt denies vaginal bleeding. Patient has a sharp stabbing right lower abdominal pain. Patient stated she does not feel like she needs to be in the ER but came because her doctors sent her here. Upon arrival patient appears well, there are no signs of acute distress. Pt VS WNL. - Related Data Home Medications Medication Instructions Recorded Confirmed Citalopram Hydrobromide [CeleXA] 20 mg PO HS 08/08/18 08/08/18 Levonor/Ethi Tab 0.1-0.02 1 tab PO HS 08/08/18 08/08/18 lamoTRIgine [LaMICtal] 100 mg PO HS 08/08/18 08/08/18 Allergies Allergy/AdvReac Type Severity Reaction Status Date / Time nifedipine [From Procardia] Allergy TACHYCARDIA Verified 08/08/18 17:42 Review of Systems ROS Statement: Those systems with pertinent positive or pertinent negative responses have been documented in the HPI. ROS Other: All systems not noted in ROS Statement are negative. Past Medical History Past Medical History: No Reported History Additional Past Medical History / Comment(s): Patient has a history of bipolar disorder with anxiety and depression and history of suicide attempt in the past. Patient has a history of asthma. Obstetric history: She has had one spon taneous and 3 vaginal deliveries. She's had care with me in this since the first trimester. Blood type is A+, antibody is negative, rubella immune, hepatitis B negative, HIV negative, GBS unknown. History of Any Multi-Drug Resistant Organisms: None Reported Past Surgical History: Ear Surgery Past Anesthesia/Blood Transfusion Reactions: No Reported Reaction Past Psychological History: Bipolar, Depression Smoking Status: Current every day smoker Past Alcohol Use History: None Reported Past Drug Use History: None Reported - Past Family History Father Family Medical History: No Reported History General Exam - General Exam Comments Initial Comments: General: The patient is awake and alert, in no distress, and does not appear acutely ill. Eye: Pupils are equal, round and reactive to light, extra-ocular movements are intact. No nystagmus. There is normal conjunctiva bilaterally. No signs of icterus. Ears, nose, mouth and throat: There are moist mucous membranes and no oral lesions. Neck: The neck is supple, there is no tenderness or JVD. Cardiovascular: There is a regular rate and rhythm. No murmur, rub or gallop is appreciated. Respiratory: Lungs are clear to auscultation, respirations are non-labored, breath sounds are equal. No wheezes, stridor, rales, or rhonchi. Gastrointestinal: No noted diaphoresis, jaundice, pallor, protecting postures or squirming. Symmetrical pigmentation of abdomen without signs of inflammation.Umbilicus mildline, inverted without swelling. No dilated veins. Abdomen contour obese, no noted abdominal distention. No visible masses. No peristalsis, aortic pulsa tions, or ventral hernia. Bowel sounds audible in all 4 quadrants, unremarkable. Tenderness to deep palpation of the RLQ/right lower pelvic region. Liver edge, not palpable. Spleen edge, right and left kidney not palpable. Superior bladder margin non-tender. Special Testing: Negative Kerens, Rovsing, Vargas, cutaneous hyperesthesia. Iliopsoas and obturator tests negative bilaterally. Negative Heel Jar test. No CVA tenderness. Digital rectal exam deferred. Negative lew turners or cullens sign Musculoskeletal: No midline tenderness to patient of the lumbar spine. Normal ROM, no tenderness. Strength 5/5 of the lower extremities equal and comparison bilaterally. Sensation intact of the lower extremities equal comparison bilaterally including the saddle region. DP and radial pulses equal bilaterally 2+. Neurological: A&O x 3. CN II-XII intact, There are no obvious motor or sensory deficits. Coordination appears grossly intact. Speech is normal. Skin: Skin is warm and dry and no rashes or lesions are noted. Psychiatric: Cooperative, appropriate mood & affect, normal judgment. Limitations: no limitations Course Vital Signs 08/08/18 08/08/18 08/08/18 17:38 19:26 21:43 Temperature 99.1 F 97.9 F Pulse Rate 80 82 Respiratory 18 18 16 Rate Blood Pressure 114/82 138/72 O2 Sat by Pulse 99 98 Oximetry Medical Decision Making - Medical Decision Making Well-appearing 28-year-old female presenting for evaluation to rule out appendicitis and ovarian disease. Patient states she presented for low back pain, she states she has chronic issues with low back pain. She states she was told she probably had a slipped disc however upon physical examination abdominal exam performed by primary provider he noted right lower quadrant tenderness. Patient states it was tender to palpation however she has not noted any abdominal pain. Patient denies any urinary symptoms. Patient pain does wrap from low back down to the right groin. Patient denies hematuria. No neurological or vascular deficits noted on exam. CT of the abdomen revealed no acute findings however upon reviewing with attending providers area suspicious for possible renal calculi. This is a differential diagnosis. Complete pelvic ultrasound with Doppler revealed no acute abnormality. Patient after and did not appear cervical, no rigidity no guardingand it could pain patient comfortable sitting in bed. Laboratory studies revealed nonspecific leukocyt osis. Remaining laboratory studies within normal limits. Urinalysis revealed red blood cells, this is consistent with a potential diagnosis of renal cocktail. Patient was provided [facility] emergency department. At this time feel patient is stable for discharge with outpatient primary care follow-up. Return parameters were discussed at length the patient who verbalized understanding. Patient was discharged appearing well after discussing the case with attending provider Dr Ochoa who revealed all laboratory studies as well as imaging studies of patient, he he personally reviewed CT. Agreed with impression and plan. - Lab Data Result diagrams: 08/08/18 18:35 08/08/18 18:35 Lab Results 08/08/18 08/08/18 08/08/18 Range/Units 18:35 18:35 19:20 WBC 12.1 H (3.8-10.6) k/uL RBC 4.39 (3.80-5.40) m/uL Hgb 13.5 (11.4-16.0) gm/dL Hct 39.9 (34.0-46.0) % MCV 90.9 (80.0-100.0) fL MCH 30.6 (25.0-35.0) pg MCHC 33.7 (31.0-37.0) g/dL RDW 12.8 (11.5-15.5) % Plt Count 368 (150-450) k/uL Neutrophils % 63 % Lymphocytes % 30 % Monocytes % 4 % Eosinophils % 1 % Basophils % 1 % Neutrophils # 7.6 (1.3-7.7) k/uL Lymphocytes # 3.7 (1.0-4.8) k/uL Monocytes # 0.5 (0-1.0) k/uL Eosinophils # 0.1 (0-0.7) k/uL Basophils # 0.1 (0-0.2) k/uL Sodium 139 (137-145) mmol/L Potassium 3.9 (3.5-5.1) mmol/L Chloride 107 (98-107) mmol/L Carbon Dioxide 23 (22-30) mmol/L Anion Gap 9 mmol/L BUN 13 (7-17) mg/dL Creatinine 0.69 (0.52-1.04) mg/dL Est GFR (CKD-EPI)AfAm >90 (>60 ml/min/1.73 sqM) Est GFR (CKD-EPI)NonAf >90 (>60 ml/min/1.73 sqM) Glucose 89 (74-99) mg/dL Calcium 9.7 (8.4-10.2) mg/dL Total Bilirubin 0.4 (0.2-1.3) mg/dL AST 18 (14-36) U/L ALT 26 (9-52) U/L Alkaline Phosphatase 93 (38-126) U/L Total Protein 7.7 (6.3-8.2) g/dL Albumin 4.5 (3.5-5.0) g/dL Urine Color Urine Appearance (Clear) Urine pH (5.0-8.0) Ur Specific [place] (1.001-1.035) Urine Protein (Negative) Urine Glucose (UA) (Negative) Urine Ketones (Negative) Urine Blood (Negative) Urine Nitrite (Negative) Urine Bilirubin (Negative) Urine Urobilinogen (<2.0) mg/dL Ur Leukocyte Esterase (Negative) Urine RBC (0-5) /hpf Urine WBC (0-5) /hpf Ur Squamous Epith Cells (0-4) /hpf Urine Mucus (None) /hpf Urine HCG, Qual Not Detected (Not Detectd) 08/08/18 Range/Units 19:20 WBC (3.8-10.6) k/uL RBC (3.80-5.40) m/uL Hgb (11.4-16.0) gm/dL Hct (34.0-46.0) % MCV (80.0-100.0) fL MCH (25.0-35.0) pg MCHC (31.0-37.0) g/dL RDW (11.5-15.5) % Plt Count (150-450) k/uL Neutrophils % % Lymphocytes % % Monocytes % % Eosinophils % % Basophils % % Neutrophils # (1.3-7.7) k/uL Lymphocytes # (1.0-4.8) k/uL Monocytes # (0-1.0) k/uL Eosinophils # (0-0.7) k/uL Basophils # (0-0.2) k/uL Sodium (137-145) mmol/L Potassium (3.5-5.1) mmol/L Chloride (98-107) mmol/L Carbon Dioxide (22-30) mmol/L Anion Gap mmol/L BUN (7-17) mg/dL Creatinine (0.52-1.04) mg/dL Est GFR (CKD-EPI)AfAm (>60 ml/min/1.73 sqM) Est GFR (CKD-EPI)NonAf (>60 ml/min/1.73 sqM) Glucose (74-99) mg/dL Calcium (8.4-10.2) mg/dL Total Bilirubin (0.2-1.3) mg/dL AST (14-36) U/L ALT (9-52) U/L Alkaline Phosphatase (38-126) U/L Total Protein (6.3-8.2) g/dL Albumin (3.5-5.0) g/dL Urine Color Yellow Urine Appearance Clear (Clear) Urine pH 6.0 (5.0-8.0) Ur Specific [place] 1.028 (1.001-1.035) Urine Protein Trace H (Negative) Urine Glucose (UA) Negative (Negative) Urine Ketones 1+ H (Negative) Urine Blood Moderate H (Negative) Urine Nitrite Negative (Negative) Urine Bilirubin Negative (Negative) Urine Urobilinogen 2.0 (<2.0) mg/dL Ur Leukocyte Esterase Moderate H (Negative) Urine RBC 19 H (0-5) /hpf Urine WBC 2 (0-5) /hpf Ur Squamous Epith Cells 2 (0-4) /hpf Urine Mucus Few H (None) /hpf Urine HCG, Qual (Not Detectd) Disposition Clinical Impression: Back pain Disposition: HOME SELF-CARE Condition: Good Additional Instructions: Please use medication as discussed. Please follow-up with family doctor in the next 1-2 days. Please return to emergency room if the symptoms increase or worsen or for any other concerns. fever, abdominal pain. Is patient prescribed a controlled substance at d/c from ED?: No Referrals: Aren Faria MD [Primary Care Provider] - 1-2 days Time of Disposition: 20:53
[2018-08-08 19:39] LABS: Appearance,Urine Clear (Clear); Bilirubin,Urine Negative (Negative); Blood,Urine Moderate (Negative); Color,Urine Yellow; Glucose,Urine (UA) Negative (Negative); Ketones,Urine 1+ (Negative); Leukocyte Esterase,Urine Moderate (Negative); Mucus,Urine Few /hpf; Nitrite,Urine Negative (Negative); Protein,Urine Trace (Negative); RBC,Urine 19 /hpf (0-5); Specific Gravity,Urine 1.028 (1.001-1.035); Squamous Epithelial Cell,Urine 2 /hpf (0-4); WBC,Urine 2 /hpf (0-5)
--- NOTE | 2018-08-08 19:40 | US ---
EXAMINATION TYPE: US transvaginal DATE OF EXAM: 08/08/2018 COMPARISON: NONE CLINICAL HISTORY: Pain. RLQ pain TECHNIQUE: Transvaginal (TV Date of LMP: 07/29/2018 EXAM MEASUREMENTS: Uterus: 7.5 x 4.0 x 4.7 cm Endometrial Stripe: 0.3 cm Right Ovary: 2.5 x 1.9 x 1.7 cm Left Ovary: 2.5 x 1.3 x 2.1 cm 1. Uterus: Anteverted wnl 2. Endometrium: wnl 3. Right Ovary: wnl 4. Left Ovary: wnl Spectral, color and waveform doppler imaging shows good arterial and venous flow within the ovaries ; there is no evidence for ovarian torsion. 5. Bilateral Adnexa: wnl 6. Posterior cul-de-sac: wnl IMPRESSION: Normal transvaginal pelvic sonogram. No evidence of ovarian torsion.
--- NOTE | 2018-08-08 20:28 | CT ---
EXAMINATION TYPE: CT abdomen pelvis w con DATE OF EXAM: 08/08/2018 COMPARISON: 12/15/2009 HISTORY: Rt side abdomen/back pain x [address] DLP: 935.9 mGycm Automated exposure control for dose reduction was used. TECHNIQUE: Helical acquisition of images was performed from the lung bases through the pelvis. CONTRAST: Performed without Oral Contrast and with IV Contrast, patient injected with 100 mL of Isovue 300. FINDINGS: Lung bases are clear. There is no pleural effusion. Heart size is normal. There is no pericardial eff usion. Liver spleen pancreas gallbladder stomach appear normal. Bile ducts are not dilated. There is no adrenal mass. Kidneys show satisfactory contrast opacification. There is no hydronephrosi s. There is no retroperitoneal adenopathy. The bladder distends smoothly. There is no free fluid in t he pelvis. There is no inguinal hernia. Uterus is anteverted. There is no mesenteric edema. Appendix appears normal. There is no sign of a bowel obstruction. There is no free air. There is no ascites. There is no free fluid in the pelvis. The lumbar spine is intac t. Bony pelvis is intact. IMPRESSION: NEGATIVE CT SCAN OF THE ABDOMEN AND PELVIS. NORMAL APPENDIX.
[2018-08-08] MEDS ORDERED: KETOROLAC 30 MG/ML 1 ML VIAL IVP STA (20:56)
[2018-08-08 21:44] VITALS: BP 138/72; PULSE 82; RESP 16; TEMP 97.9
== END 2018-08-08 21:40 | disposition home or self-care (01) ==
LOC: EC 17:37
DX: M54.5 Low back pain (principal); D72.829 Elevated white blood cell count, unspecified; F41.9 Anxiety disorder, unspecified; F32.9 Major depressive disorder, single episode, unspecified; F17.200 Nicotine dependence, unspecified, uncomplicated; Z79.3 Long term (current) use of hormonal contraceptives; Z79.899 Other long term (current) drug therapy; Z88.8 Allergy status to other drugs, medicaments and biological substances
CPT/HCPCS: 36415; 80053; 85025; 81001; 81025; 93975; 76830; 74177; 99284; 96374; J1885; Q9967

== ENCOUNTER 2018-09-30 07:12 | Emergency (ER) | payer OTHER ==
[2018-09-30 07:25] VITALS: BP 104/74; PULSE 101; RESP 18; TEMP 99
--- NOTE | 2018-09-30 07:51 | ED ---
Lower Extremity Injury HPI - General Chief Complaint: Extremity Injury, Lower Stated Complaint: lt knee injury Time Seen by Provider: 09/30/18 07:28 Source: patient, RN notes reviewed, old records reviewed Mode of arrival: wheelchair Limitations: no limitations - History of Present Illness Initial Comments: Patient is 20-year-old female presents emergency department today for evaluation for left knee pain. Patient reports that yesterday she slipped on her deck as it was wet. She reports that she fell in a house "split-like motion. Patient states that she's having pain over the medial knee. Patient reports that she initially thought the pain was going to go away. She reports it seemed to be worse with going up and down stairs. Patient states that she's had no previous knee injuries. She does have a history of chronic foot problems. Patient states that she has no other complaints at this time. Denies any peripheral paresthesias. - Related Data Home Medications Medication Instructions Recorded Confirmed Aviane-28 1 tab PO HS 09/30/18 09/30/18 Citalopram Hydrobromide [CeleXA] 20 mg PO HS 09/30/18 09/30/18 lamoTRIgine [LaMICtal] 100 mg PO HS 09/30/18 09/30/18 Previous Rx's Medication Instructions Recorded Naproxen 500 mg PO BID #20 tablet 09/30/18 Allergies Allergy/AdvReac Type Severity Reaction Status Date / Time nifedipine [From Procardia] Allergy TACHYCARDIA Verified 09/30/18 07:55 Review of Systems ROS Statement: Those systems with pertinent positive or pertinent negative responses have been documented in the HPI. ROS Other: All systems not noted in ROS Statement are negative. Past Medical History Past Medical History: No Reported History Additional Past Medical History / Comment(s): Patient has a history of bipolar disorder with anxiety and depression and history of suicide attempt in the past. Patient has a history of asthma. Obstetric history: She has had one spon taneous and 3 vaginal deliveries. She's had care with me in this since the first trimester. Blood type is A+, antibody is negative, rubella immune, hepatitis B negative, HIV negative, GBS unknown. History of Any Multi-Drug Resistant Organisms: None Reported Past Surgical History: Ear Surgery Past Anesthesia/Blood Transfusion Reactions: No Reported Reaction Past Psychological History: Bipolar, Depression Smoking Status: Current every day smoker Past Alcohol Use History: Occasional Past Drug Use History: None Reported - Past Family History Father Family Medical History: No Reported History General Exam - General Exam Comments Initial Comments: 28-year-old female. Alert and oriented. No distress. Limitations: no limitations General appearance: alert, in no apparent distress Eye exam: Present: normal appearance, PERRL, EOMI. Absent: scleral icterus, conjunctival injection, periorbital swelling ENT exam: Present: normal exam, mucous membranes moist Neck exam: Present: normal inspection. Absent: tenderness, meningismus, lymphadenopathy Respiratory exam: Present: normal lung sounds bilaterally. Absent: respiratory distress, wheezes, rales, rhonchi, stridor Cardiovascular Exam: Present: regular rate, normal rhythm, normal heart sounds. Absent: systolic murmur, diastolic murmur, rubs, gallop, clicks GI/Abdominal exam: Present: soft, normal bowel sounds. Absent: distended, tenderness, guarding, rebound, rigid Extremities exam: Present: normal inspection, full ROM, normal capillary refill. Absent: tenderness, pedal edema, joint swelling, calf tenderness Left Knee exam: Present: normal inspection, tenderness (Over MCL and medial meniscus.), swelling, pain/laxity with valgus. Absent: abrasion, laceration Lower Leg exam: Present: normal inspection, full ROM Ankle exam: Present: normal inspection, full ROM Back exam: Present: normal inspection Neurological exam: Present: alert, oriented X3, CN II-XII intact Psychiatric exam: Present: normal affect, normal mood Skin exam: Present: warm, dry, intact, normal color. Absent: rash Course Vital Signs 09/30/18 07:22 Temperature 99.0 F Pulse Rate 101 H Respiratory 18 Rate Blood Pressure 104/74 O2 Sat by Pulse 99 Oximetry Medical Decision Making - Medical Decision Making A 20-year-old feel presents returned today with left knee pain after tripping and falling. Patient at this time has some tenderness or medial meniscus and medial collateral ligament. X-rays completed shows infrapatellar effusion. Discussed concern for internal drainage. There is no acute osseous abnormality. Patient was given a knee immobilizer. Discussed she is follow-up with cyber security specialist. Given a prescription for crutches and temperature medication. Given a note for work as well. All questions were answered and return parameters were discussed. - Radiology Data Radiology results: report reviewed Infrapatellar joint effusion. Soft tissue swelling. MRI can assess her internal drainage been clinically indicated. No acute process illness abnormality seen. Disposition Clinical Impression: Knee effusion, left, MCL sprain of left knee Disposition: HOME SELF-CARE Condition: Good Instructions (If sedation given, give patient instructions): Knee Sprain (ED) Additional Instructions: Patient has a close follow-up with cyber security specialist. Return to emergency department if any alarming signs or symptoms occur. Prescriptions: Naproxen 500 mg PO BID #20 tablet Is patient prescribed a controlled substance at d/c from ED?: No Referrals: Aren Faria MD [Primary Care Provider] - 1-2 days Armand Bob MD [Medical Doctor] - 1-2 days Time of Disposition: 08:40
--- NOTE | 2018-09-30 08:15 | XR ---
EXAMINATION TYPE: XR knee complete LT DATE OF EXAM: 09/30/2018 COMPARISON: NONE HISTORY: 28-year-old female with pain after fall TECHNIQUE: 3 views FINDINGS: Infrapatellar soft tissue swelling and small joint effusion along the infrapatellar region. No acute fracture, subluxation, or dislocation. IMPRESSION: Infrapatellar joint effusion and soft tissue swelling. MRI can assess for internal derangement if cli nically indicated. No acute osseous abnormality seen.
== END 2018-09-30 08:57 | disposition home or self-care (01) ==
LOC: EC 07:12
DX: S83.412A Sprain of medial collateral ligament of left knee, initial encounter (principal); F31.9 Bipolar disorder, unspecified; F41.9 Anxiety disorder, unspecified; F17.200 Nicotine dependence, unspecified, uncomplicated; Z88.8 Allergy status to other drugs, medicaments and biological substances; Z79.3 Long term (current) use of hormonal contraceptives; Z79.899 Other long term (current) drug therapy; W01.0XXA Fall on same level from slipping, tripping and stumbling without subsequent striking against object, initial encounter; Y92.009 Unspecified place in unspecified non-institutional (private) residence as the place of occurrence of the external cause
CPT/HCPCS: 73562; 99284; L1830

== ENCOUNTER 2020-09-01 00:24 | Emergency (ER) | payer OTHER ==
--- NOTE | 2020-09-01 00:46 | ED ---
Dizziness HPI - General Chief Complaint: Dizziness Stated Complaint: Dizziness Time Seen by Provider: 09/01/20 00:34 Source: EMS Mode of arrival: EMS Limitations: no limitations - Related Data Home Medications Medication Instructions Recorded Confirmed Aviane-28 1 tab PO HS 09/30/18 09/30/18 Citalopram Hydrobromide [CeleXA] 20 mg PO HS 09/30/18 09/30/18 lamoTRIgine [LaMICtal] 100 mg PO HS 09/30/18 09/30/18 Previous Rx's Medication Instructions Recorded Naproxen 500 mg PO BID #20 tablet 09/30/18 Allergies Allergy/AdvReac Type Severity Reaction Status Date / Time nifedipine [From Procardia] Allergy TACHYCARDIA Verified 09/30/18 07:55 Review of Systems ROS Statement: Those systems with pertinent positive or pertinent negative responses have been documented in the HPI. ROS Other: All systems not noted in ROS Statement are negative. Past Medical History Past Medical History: No Reported History Additional Past Medical History / Comment(s): Patient has a history of bipolar disorder with anxiety and depression and history of suicide attempt in the past. Patient has a history of asthma. Obstetric history: She has had one spontaneous and 3 vaginal deliveries. She's had care with me in this since the first trimester. Blood type is A+, antibody is negative, rubella immune, hepatitis B negative, HIV negative, GBS unknown. History of Any Multi-Drug Resistant Organisms: None Reported Past Surgical History: Ear Surgery Past Anesthesia/Blood Transfusion Reactions: No Reported Reaction Past Psychological History: Anxiety, Bipolar, Depression Smoking Status: Current every day smoker Past Alcohol Use History: Occasional Past Drug Use History: Marijuana - Past Family History Father Family Medical History: No Reported History General Exam Limitations: no limitations Course Vital Signs 09/01/20 00:28 Temperature 98.6 F Pulse Rate 77 Respiratory 20 Rate Blood Pressure 116/79 O2 Sat by Pulse 100 Oximetry Medical Decision Making - Lab Data Result diagrams: 09/01/20 01:25 09/01/20 01:25 Lab Results 09/01/20 09/01/20 09/01/20 Range/Units 01:00 01:00 01:25 WBC 10.8 H (3.8-10.6) k/uL RBC 3.97 (3.80-5.40) m/uL Hgb 12.8 (11.4-16.0) gm/dL Hct 36.6 (34.0-46.0) % MCV 92.3 (80.0-100.0) fL MCH 32.3 (25.0-35.0) pg MCHC 35.0 (31.0-37.0) g/dL RDW 12.2 (11.5-15.5) % Plt Count 253 (150-450) k/uL MPV 8.0 Neutrophils % 61 % Lymphocytes % 29 % Monocytes % 7 % Eosinophils % 1 % Basophils % 1 % Neutrophils # 6.6 (1.3-7.7) k/uL Lymphocytes # 3.1 (1.0-4.8) k/uL Monocytes # 0.8 (0-1.0) k/uL Eosinophils # 0.1 (0-0.7) k/uL Basophils # 0.1 (0-0.2) k/uL Sodium (137-145) mmol/L Potassium (3.5-5.1) mmol/L Chloride (98-107) mmol/L Carbon Dioxide (22-30) mmol/L Anion Gap mmol/L BUN (7-17) mg/dL Creatinine (0.52-1.04) mg/dL Est GFR (CKD-EPI)AfAm (>60 ml/min/1.73 sqM) Est GFR (CKD-EPI)NonAf (>60 ml/min/1.73 sqM) Glucose (74-99) mg/dL Calcium (8.4-10.2) mg/dL Phosphorus (2.5-4.5) mg/dL Magnesium (1.6-2.3) mg/dL Total Bilirubin (0.2-1.3) mg/dL AST (14-36) U/L ALT (4-34) U/L Alkaline Phosphatase (38-126) U/L Total Protein (6.3-8.2) g/dL Albumin (3.5-5.0) g/dL Urine Color Yellow Urine Appearance Clear (Clear) Urine pH 7.0 (5.0-8.0) Ur Specific [place] 1.021 (1.001-1.035) Urine Protein Trace H (Negative) Urine Glucose (UA) Negative (Negative) Urine Ketones 1+ H (Negative) Urine Blood Moderate H (Negative) Urine Nitrite Negative (Negative) Urine Bilirubin Negative (Negative) Urine Urobilinogen 2.0 (<2.0) mg/dL Ur Leukocyte Esterase Negative (Negative) Urine RBC 20 H (0-5) /hpf Urine WBC 3 (0-5) /hpf Urine Bacteria Rare H (None) /hpf Urine Mucus Rare H (None) /hpf Urine HCG, Qual Not Detected (Not Detectd) Urine Opiates Screen Not Detected (NotDetected) Ur Oxycodone Screen Not Detected (NotDetected) Urine Methadone Screen Not Detected (NotDetected) Ur Propoxyphene Screen Not Detected (NotDetected) Ur Barbiturates Screen Not Detected (NotDetected) U Tricyclic Antidepress Not Detected (NotDetected) Ur Phencyclidine Scrn Not Detected (NotDetected) Ur Amphetamines Screen Not Detected (NotDetected) U Methamphetamines Scrn Not Detected (NotDetected) U Benzodiazepines Scrn Not Detected (NotDetected) Urine Cocaine Screen Not Detected (NotDetected) U Marijuana (THC) Screen Not Detected (NotDetected) 09/01/20 Range/Units 01:25 WBC (3.8-10.6) k/uL RBC (3.80-5.40) m/uL Hgb (11.4-16.0) gm/dL Hct (34.0-46.0) % MCV (80.0-100.0) fL MCH (25.0-35.0) pg MCHC (31.0-37.0) g/dL RDW (11.5-15.5) % Plt Count (150-450) k/uL MPV Neutrophils % % Lymphocytes % % Monocytes % % Eosinophils % % Basophils % % Neutrophils # (1.3-7.7) k/uL Lymphocytes # (1.0-4.8) k/uL Monocytes # (0-1.0) k/uL Eosinophils # (0-0.7) k/uL Basophils # (0-0.2) k/uL Sodium 140 (137-145) mmol/L Potassium 3.4 L (3.5-5.1) mmol/L Chloride 110 H (98-107) mmol/L Carbon Dioxide 23 (22-30) mmol/L Anion Gap 7 mmol/L BUN 18 H (7-17) mg/dL Creatinine 0.77 (0.52-1.04) mg/dL Est GFR (CKD-EPI)AfAm >90 (>60 ml/min/1.73 sqM) Est GFR (CKD-EPI)NonAf >90 (>60 ml/min/1.73 sqM) Glucose 121 H (74-99) mg/dL Calcium 8.9 (8.4-10.2) mg/dL Phosphorus 2.7 (2.5-4.5) mg/dL Magnesium 2.1 (1.6-2.3) mg/dL Total Bilirubin 0.2 (0.2-1.3) mg/dL AST 20 (14-36) U/L ALT 11 (4-34) U/L Alkaline Phosphatase 65 (38-126) U/L Total Protein 6.7 (6.3-8.2) g/dL Albumin 4.0 (3.5-5.0) g/dL Urine Color Urine Appearance (Clear) Urine pH (5.0-8.0) Ur Specific [place] (1.001-1.035) Urine Protein (Negative) Urine Glucose (UA) (Negative) Urine Ketones (Negative) Urine Blood (Negative) Urine Nitrite (Negative) Urine Bilirubin (Negative) Urine Urobilinogen (<2.0) mg/dL Ur Leukocyte Esterase (Negative) Urine RBC (0-5) /hpf Urine WBC (0-5) /hpf Urine Bacteria (None) /hpf Urine Mucus (None) /hpf Urine HCG, Qual (Not Detectd) Urine Opiates Screen (NotDetected) Ur Oxycodone Screen (NotDetected) Urine Methadone Screen (NotDetected) Ur Propoxyphene Screen (NotDetected) Ur Barbiturates Screen (NotDetected) U Tricyclic Antidepress (NotDetected) Ur Phencyclidine Scrn (NotDetected) Ur Amphetamines Screen (NotDetected) U Methamphetamines Scrn (NotDetected) U Benzodiazepines Scrn (NotDetected) Urine Cocaine Screen (NotDetected) U Marijuana (THC) Screen (NotDetected) Disposition Clinical Impression: Dizziness Disposition: HOME SELF-CARE Condition: Good Instructions (If sedation given, give patient instructions): Dizziness (ED) Is patient prescribed a controlled substance at d/c from ED?: No Referrals: Aren Faria MD [Primary Care Provider] - 1-2 days
[2020-09-01 01:11] LABS: Appearance,Urine Clear (Clear); Bacteria,Urine Rare /hpf; Bilirubin,Urine Negative (Negative); Blood,Urine Moderate (Negative); Color,Urine Yellow; Glucose,Urine (UA) Negative (Negative); Ketones,Urine 1+ (Negative); Leukocyte Esterase,Urine Negative (Negative); Mucus,Urine Rare /hpf; Nitrite,Urine Negative (Negative); Protein,Urine Trace (Negative); RBC,Urine 20 /hpf (0-5); Specific Gravity,Urine 1.021 (1.001-1.035); WBC,Urine 3 /hpf (0-5)
[2020-09-01] MEDS ORDERED: ONDANSETRON 4 MG/2 ML VIAL IVP STA (01:12)
[2020-09-01] MEDS ORDERED: SODIUM CHLORIDE 0.9% 1,000 ML IV STA ×2 (01:12)
[2020-09-01] MEDS ORDERED: LORazepam 2 MG/ML INJ IV STA (01:12)
[2020-09-01] MEDS ORDERED: SODIUM CHLORIDE 0.9% 500 ML 500 ML IV STA (01:12)
[2020-09-01 01:17] LABS: Cocaine Screen,Urine Not Detected (NotDetected); Phencyclidine Screen,Urine Not Detected (NotDetected)
[2020-09-01 01:18] LABS: Amphetamine Screen,Urine Not Detected (NotDetected); Barbiturate Screen,Urine Not Detected (NotDetected); Benzodiazepines Screen,Urine Not Detected (NotDetected); Methadone Screen, Urine Not Detected (NotDetected); Opiate Screen,Urine Not Detected (NotDetected); Oxycodone Screen, Urine Not Detected (NotDetected); Tricyclic Antidepressant,Urine Not Detected (NotDetected); Urn Cannabinoid Scrn Not Detected (NotDetected)
[2020-09-01 01:50] LABS: Basophils # (A) 0.1 k/uL (0-0.2); Basophils % (A) 1 %; Eosinophils # (A) 0.1 k/uL (0-0.7); Eosinophils % (A) 1 %; HCT 36.6 % (34.0-46.0); HGB 12.8 gm/dL (11.4-16.0); Lymphocytes # (A) 3.1 k/uL (1.0-4.8); Lymphocytes % (A) 29 %; MCH 32.3 pg (25.0-35.0); MCV 92.3 fL (80.0-100.0); Monocytes # (A) 0.8 k/uL (0-1.0); Monocytes % (A) 7 %; Neutrophils # (A) 6.6 k/uL (1.3-7.7); Neutrophils % (A) 61 %; Platelet Count 253 k/uL (150-450); RBC 3.97 m/uL (3.80-5.40); RDW 12.2 % (11.5-15.5); WBC 10.8 k/uL (3.8-10.6)
[2020-09-01 02:01] LABS: ALT 11 U/L (4-34); AST 20 U/L (14-36); African American GFR (CKD) >90 (>60 ml/min/1.73 sqM); Alkaline Phosphatase 65 U/L (38-126); Anion Gap 7 mmol/L; Blood Urea Nitrogen 18 mg/dL (7-17); Calcium 8.9 mg/dL (8.4-10.2); Carbon Dioxide 23 mmol/L (22-30); Chloride 110 mmol/L (98-107); Glucose 121 mg/dL (74-99); Magnesium 2.1 mg/dL (1.6-2.3); Non-African American GFR(CKD) >90 (>60 ml/min/1.73 sqM); Phosphorus 2.7 mg/dL (2.5-4.5); Potassium 3.4 mmol/L (3.5-5.1); Sodium 140 mmol/L (137-145); Total Bilirubin 0.2 mg/dL (0.2-1.3); Total Protein 6.7 g/dL (6.3-8.2)
[2020-09-01 04:04] VITALS: BP 110/69; PULSE 98; RESP 18; TEMP 98.7
== END 2020-09-01 04:04 | disposition home or self-care (01) ==
LOC: EC 00:24
DX: R42 Dizziness and giddiness (principal); F31.9 Bipolar disorder, unspecified; F17.200 Nicotine dependence, unspecified, uncomplicated
CPT/HCPCS: 36415; 80053; 80175; 83735; 84100; 85025; 81001; 81025; 80306; 99284; J2060; J2405

== ENCOUNTER → 2023-10-16 | Outpatient (CLI) | payer OTHER ==
--- NOTE | 2023-10-16 10:57 | US ---
EXAMINATION TYPE: Transabdominal DATE OF EXAM: 10/16/2023 10:31 AM COMPARISON: NONE CLINICAL INDICATION: Female, 33 years old with history of Z36.89 CONFIRM DATES AND VIABILITY; confirm dates. EXAM PERFORMED: Transabdominal (TA) EXAM MEASUREMENTS: GESTATIONAL AGE / DATING Physician Established: Not yet established Dates by LMP: 08/12/23 (9 weeks/2 days) EDC: 05/18/24 Dates by First Scan: No previous this is first scan Dates by Current Scan for: (9 weeks/3 days) EDC: 05/17/24 MATERNAL ANATOMY Uterus: 11.3 x 8.0 x 6.3cm Right Ovary: 2.7 x 1.9 x 1.8cm Left Ovary: 1.8 x 1.7 x 1.2cm Post CDS / Adnexa: wnl Presence of free fluid: No Presence of corpus luteal cyst: Probable in rt ov measuring 1.8 x 1.2 x 0.8cm Presence of subchorionic bleed: yes measuring 2.3 x 1.7 x 1.3cm GESTATION / SURVEY CRL: 2.6cm (9 weeks/3 days) MSD: Not measured, appears wnl Yolk Sac (normal less than 6mm): 4.6mm Heart Rate: 152 bpm Rhythm: Normal IUP: Viable IUP Date of LMP: 08/11/22 Beta HcG (if available): N/A Single live IUP seen measuring 9 weeks 3 days. Heterogeneous area seen adjacent to gest sac measuring 2.3 x 1.7 x 1.3cm IMPRESSION: 1. Single live intrauterine with calculated ultrasound age of 9 weeks 3 days with an estima hema date of delivery of 05/17/2024. 2. Small subchorionic bleed. Close clinical surveillance is recommended.
== END | disposition home or self-care (01) ==
LOC: RADUSWWP 09:57
PROVIDERS: ATTEND Obstetrics & Gynecology
DX: Z36.89 Encounter for other specified antenatal screening (principal); O20.8 Other hemorrhage in early pregnancy; Z3A.09 9 weeks gestation of pregnancy
CPT/HCPCS: 76801

== ENCOUNTER 2024-02-22 09:35 | Emergency (ER) | payer OTHER ==
--- NOTE | 2024-02-22 10:04 | ED ---
General Adult HPI - General Chief complaint: Shortness of Breath Stated complaint: SOB,cough,fever Time Seen by Provider: 02/22/24 09:45 Source: patient, RN notes reviewed, old records reviewed Mode of arrival: ambulatory Limitations: no limitations - History of Present Illness Initial comments: This is a 33-year-old female who presents to the emergency department 28 weeks . Patient states she has had a cough for the last 3 days coughing up s ome sputum and had a low-grade fever for the last 3 days. Patient states her daughters had pneumonia. Patient denies any abdominal pain patient denies any vaginal bleeding. Patient denies any back pain. Patient denies any chest pain or palpitations. Patient states she has been tachycardic ever since has been she states her heart rate at home is normally about 120 beats a minute - Related Data Home Medications Medication Instructions Recorded Confirmed Aviane-28 1 tab PO HS 09/30/18 09/30/18 Citalopram Hydrobromide [CeleXA] 20 mg PO HS 09/30/18 09/30/18 lamoTRIgine [LaMICtal] 100 mg PO HS 09/30/18 09/30/18 Previous Rx's Medication Instructions Recorded Naproxen 500 mg PO BID #20 tablet 09/30/18 Azithromycin [Zithromax Tri-Otis (3 500 mg PO DAILY 3 Days #3 tab 02/22/24 tabs)] Allergies Allergy/AdvReac Type Severity Reaction Status Date / Time nifedipine [From Procardia] Allergy TACHYCARDIA Verified 02/22/24 09:43 Review of Systems ROS Statement: Those systems with pertinent positive or pertinent negative responses have been documented in the HPI. ROS Other: All systems not noted in ROS Statement are negative. Past Medical History Past Medical History: No Reported History Additional Past Medical History / Comment(s): Patient has a history of bipolar disorder with anxiety and depression and history of suicide attempt in the past. Patient has a history of asthma. Obstetric history: She has had one spontaneous and 3 vaginal deliveries. She's had care with me in this since the first trimester. Blood type is A+, antibody is negative, rubella immune, hepatitis B negative, HIV negative, GBS unknown. History of Any Multi-Drug Resistant Organisms: None Reported Past Surgical History: Ear Surgery Past Anesthesia/Blood Transfusion Reactions: No Reported Reaction Past Psychological History: Anxiety, Bipolar, Depression Smoking Status: Current every day smoker Past Alcohol Use History: Occasional Past Drug Use History: Marijuana - Past Family History Father Family Medical History: No Reported History General Exam - General Exam Comments Initial Comments: GENERAL: Patient is well-developed and well-nourished. Patient is nontoxic and well- hydrated and is in mild distress. ENT: Neck is soft and supple. No significant lymphadenopathy is noted. Oropharynx is clear. Moist mucous membranes. Neck has full range of motion without eliciting any pain. EYES: The sclera were anicteric and conjunctiva were pink and moist. Extraocular movements were intact and pupils were equal round and reactive to light. Eyelids were unremarkable. PULMONARY: Unlabored respirations. Good breath sounds bilaterally. No audible rales rhonchi or wheezing was noted. CARDIOVASCULAR: Patient is tachycardic at about 140 beats a minute ABDOMEN: Soft and nontender with normal bowel sounds. No palpable organomegaly was noted. There is no palpable pulsatile mass. SKIN: Skin is clear with no lesions or rashes and otherwise unremarkable. NEUROLOGIC: Patient is alert and oriented x3. Cranial nerves II through XII are grossly intact. Motor and sensory are also intact. Normal speech, volume and content. Symmetrical smile. MUSCULOSKELETAL: Normal extremities with adequate strength and full range of motion. No lower extremity swelling or edema. No calf tenderness. LYMPHATICS: No significant lymphadenopathy is noted PSYCHIATRIC: Normal psychiatric evaluation. Limitations: no limitations Course Vital Signs 02/22/24 02/22/24 02/22/24 09:39 09:46 09:53 Temperature 99.0 F Pulse Rate 131 H 114 H Respiratory 18 18 15 Rate Blood Pressure 125/83 108/69 O2 Sat by Pulse 98 96 Oximetry 02/22/24 02/22/24 02/22/24 10:00 11:12 12:00 Temperature 98.5 F Pulse Rate 118 H 118 H 118 H Respiratory 12 16 Rate Blood Pressure O2 Sat by Pulse 99 Oximetry 02/22/24 02/22/24 13:00 14:00 Temperature Pulse Rate 113 H 115 H Respiratory Rate Blood Pressure O2 Sat by Pulse Oximetry Medical Decision Making - Medical Decision Making Was pt. sent in by a medical professional or institution (, PA, TERRAZZO FINISHER, urgent care, hospital, or penitentiary...) When possible be specific @ -No Did you speak to anyone other than the patient for history (EMS, parent, family, police, friend...)? What history was obtained from this source @ -No Did you review nursing and triage notes (agree or disagree)? Why? @ -I reviewed and agree with nursing and triage notes Were old charts reviewed (outside hosp., previous admission, EMS record, old EKG, old radiological studies, urgent care reports/EKG's, penitentiary records)? Report findings @ -No old charts were reviewed Differential Diagnosis? @ -Differential Dyspnea: Coronary syndrome, arrhythmia, tamponade, asthma, COPD, pulmonary embolism, pneumonia, pneumothorax, pulmonary effusion, anaphylaxis, diabetic ketoacidosis, flailed chest, pulmonary contusion, diaphragmatic rupture, anemia, neuromuscular, this is not meant to be an all-inclusive list. EKG interpreted by me (3pts min.). @ -As above X-rays interpreted by me (1pt min.). @ -Chest x-ray shows a left lower lobe infiltrate CT interpreted by me (1pt min.). @ -None done U/S interpreted by me (1pt. min.). @ -None done What testing was considered but not performed or refused? (CT, X-rays, U/S, labs)? Why? @ -None What meds were considered but not given or refused? Why? @ -None Did you discuss the management of the patient with other professionals (professionals i.e. , PA, TERRAZZO FINISHER, lab, RT, psych nurse, social work manager, hoop rolls operator, teacher, navy airspace officer, renal case manager)? Give summary @ -No Was smoking cessation discussed for >3mins.? @ -No Was critical care preformed (if so, how long)? @ -No Were there social determinants of health that impacted care today? How? (Homelessness, low income, unemployed, alcoholism, drug addiction, transportation, low edu. Level, literacy, decrease access to med. care, penitentiary, rehab)? @ -No Was there de-escalation of care discussed even if they declined (Discuss DNR or withdrawal of care, Hospice)? DNR status @ -No What co-morbidities impacted this encounter? (DM, HTN, Smoking, COPD, CAD, Cancer, CVA, ARF, Chemo, Hep., AIDS, mental health diagnosis, sleep apnea, morbid obesity)? @ -None Was patient admitted / discharged? Hospital course, mention meds given and route, prescriptions, significant lab abnormalities, going to OR and other pertinent info. @ -Patient with pneumonia on the x-ray she was given antibiotics. Her D-dimer is mildly elevated I offered her CAT scan we talked extensively about the CAT scan and she decided that she did not want it at this time because her heart rate has been elevated for the duration of her and she did not feel that short of breath particularly lying in bed and she stated should come back if symptoms worsen. Undiagnosed new problem with uncertain prognosis? @ -No Drug Therapy requiring intensive monitoring for toxicity (Heparin, Nitro, Insulin, Cardizem)? @ -No Were any procedures done? @ -No Diagnosis/symptom? @ -Pneumonia Acute, or Chronic, or Acute on Chronic? @ -Acute Uncomplicated (without systemic symptoms) or Complicated (systemic symptoms)? @ -Complicated Side effects of treatment? @ -No Exacerbation, Progression, or Severe Exacerbation? @ -No Poses a threat to life or bodily function? How? (Chest pain, [place], [place], pneumonia, PE, COPD, DKA, ARF, appy, cholecystitis, CVA, Diverticulitis, Homicidal, Suicidal, threat to staff... and all critical care pts) @ -No - Lab Data Result diagrams: 02/22/24 10:06 02/22/24 10:06 Lab Results 02/22/24 02/22/24 02/22/24 Range/Units 10:06 10:06 10:06 WBC 12.9 H (3.8-10.6) k/uL RBC 3.70 L (3.80-5.40) m/uL Hgb 11.4 (11.4-16.0) gm/dL Hct 34.4 (34.0-46.0) % MCV 92.8 (80.0-100.0) fL MCH 30.9 (25.0-35.0) pg MCHC 33.3 (31.0-37.0) g/dL RDW 12.0 (11.5-15.5) % Plt Count 394 (150-450) k/uL MPV 7.0 Neutrophils % 78 % Lymphocytes % 13 % Monocytes % 5 % Eosinophils % 1 % Basophils % 0 % Neutrophils # 10.0 H (1.3-7.7) k/uL Lymphocytes # 1.7 (1.0-4.8) k/uL Monocytes # 0.7 (0-1.0) k/uL Eosinophils # 0.2 (0-0.7) k/uL Basophils # 0.0 (0-0.2) k/uL D-Dimer (<0.60) mg/L FEU Sodium 136 L (137-145) mmol/L Potassium 4.3 (3.5-5.1) mmol/L Chloride 107 (98-107) mmol/L Carbon Dioxide 20 L (22-30) mmol/L Anion Gap 9 mmol/L BUN 4 L (7-17) mg/dL Creatinine 0.52 (0.52-1.04) mg/dL Est GFR (CKD-EPI)AfAm >90 (>60 ml/min/1.73 sqM) Est GFR (CKD-EPI)NonAf >90 (>60 ml/min/1.73 sqM) Glucose 101 H (74-99) mg/dL Calcium 8.9 (8.4-10.2) mg/dL Magnesium 2.0 (1.6-2.3) mg/dL Total Bilirubin 0.2 (0.2-1.3) mg/dL AST 21 (14-36) U/L ALT 10 (4-34) U/L Alkaline Phosphatase 106 (38-126) U/L Total Protein 6.6 (6.3-8.2) g/dL Albumin 3.5 (3.5-5.0) g/dL Influenza Type A (PCR) Not Detected (Not Detectd) Influenza Type B (PCR) Not Detected (Not Detectd) RSV (PCR) Not Detected (Not Detectd) SARS-CoV-2 (PCR) Not Detected (Not Detectd) 02/22/24 Range/Units 14:11 WBC (3.8-10.6) k/uL RBC (3.80-5.40) m/uL Hgb (11.4-16.0) gm/dL Hct (34.0-46.0) % MCV (80.0-100.0) fL MCH (25.0-35.0) pg MCHC (31.0-37.0) g/dL RDW (11.5-15.5) % Plt Count (150-450) k/uL MPV Neutrophils % % Lymphocytes % % Monocytes % % Eosinophils % % Basophils % % Neutrophils # (1.3-7.7) k/uL Lymphocytes # (1.0-4.8) k/uL Monocytes # (0-1.0) k/uL Eosinophils # (0-0.7) k/uL Basophils # (0-0.2) k/uL D-Dimer 1.09 H (<0.60) mg/L FEU Sodium (137-145) mmol/L Potassium (3.5-5.1) mmol/L Chloride (98-107) mmol/L Carbon Dioxide (22-30) mmol/L Anion Gap mmol/L BUN (7-17) mg/dL Creatinine (0.52-1.04) mg/dL Est GFR (CKD-EPI)AfAm (>60 ml/min/1.73 sqM) Est GFR (CKD-EPI)NonAf (>60 ml/min/1.73 sqM) Glucose (74-99) mg/dL Calcium (8.4-10.2) mg/dL Magnesium (1.6-2.3) mg/dL Total Bilirubin (0.2-1.3) mg/dL AST (14-36) U/L ALT (4-34) U/L Alkaline Phosphatase (38-126) U/L Total Protein (6.3-8.2) g/dL Albumin (3.5-5.0) g/dL Influenza Type A (PCR) (Not Detectd) Influenza Type B (PCR) (Not Detectd) RSV (PCR) (Not Detectd) SARS-CoV-2 (PCR) (Not Detectd) Disposition Clinical Impression: Pneumonia Disposition: HOME SELF-CARE Instructions (If sedation given, give patient instructions): Community Acquired Pneumonia (ED) Prescriptions: Azithromycin [Zithromax Tri-Otis (3 tabs)] 500 mg PO DAILY 3 Days #3 tab Is patient prescribed a controlled substance at d/c from ED?: No Referrals: Aren Faria MD [Primary Care Provider] - 1-2 days Time of Disposition: 14:58
[2024-02-22 10:20] LABS: Basophils % (A) 0 %; Eosinophils # (A) 0.2 k/uL (0-0.7); Eosinophils % (A) 1 %; HCT 34.4 % (34.0-46.0); HGB 11.4 gm/dL (11.4-16.0); Lymphocytes # (A) 1.7 k/uL (1.0-4.8); Lymphocytes % (A) 13 %; MCH 30.9 pg (25.0-35.0); MCHC 33.3 g/dL (31.0-37.0); MCV 92.8 fL (80.0-100.0); Monocytes # (A) 0.7 k/uL (0-1.0); Monocytes % (A) 5 %; Neutrophils % (A) 78 %; Platelet Count 394 k/uL (150-450); WBC 12.9 k/uL (3.8-10.6)
[2024-02-22 10:35] LABS: ALT 10 U/L (4-34); AST 21 U/L (14-36); African American GFR (CKD) >90 (>60 ml/min/1.73 sqM); Albumin 3.5 g/dL (3.5-5.0); Alkaline Phosphatase 106 U/L (38-126); Anion Gap 9 mmol/L; Blood Urea Nitrogen 4 mg/dL (7-17); Calcium 8.9 mg/dL (8.4-10.2); Carbon Dioxide 20 mmol/L (22-30); Chloride 107 mmol/L (98-107); Glucose 101 mg/dL (74-99); Non-African American GFR(CKD) >90 (>60 ml/min/1.73 sqM); Potassium 4.3 mmol/L (3.5-5.1); Sodium 136 mmol/L (137-145); Total Bilirubin 0.2 mg/dL (0.2-1.3); Total Protein 6.6 g/dL (6.3-8.2)
[2024-02-22] MEDS: SODIUM CHLORIDE 0.9% 500 ML 500 ML IV STA (11:10)
--- NOTE | 2024-02-22 11:34 | XR ---
EXAMINATION TYPE: XR chest 2V DATE OF EXAM: 02/22/2024 11:04 AM COMPARISON: 10/12/2010 CLINICAL INDICATION: Female, 33 years old with history of difficulty breathing, TECHNIQUE: XR chest 2V view(s) obtained. FINDINGS: The heart size is normal. The pulmonary vasculature is normal. Streak atelectasis at the left lung base. Lungs otherwise appear clear.. IMPRESSION: 1. Streak atelectasis left base [facility], , 02/22/2024 11:32 AM
[2024-02-22] MEDS: cefTRIAXone IN SWFI 1,000 MG/10 ML SYRINGE IVP STA ×2 (13:43→13:44)
[2024-02-22 15:15] VITALS: BP 106/70; PULSE 121; RESP 18; TEMP 99.1
== END 2024-02-22 15:19 | disposition home or self-care (01) ==
LOC: EC 09:35
DX: O99.513 Diseases of the respiratory system complicating pregnancy, third trimester (principal); J18.9 Pneumonia, unspecified organism; O99.333 Smoking (tobacco) complicating pregnancy, third trimester; F17.200 Nicotine dependence, unspecified, uncomplicated; Z88.8 Allergy status to other drugs, medicaments and biological substances; Z3A.28 28 weeks gestation of pregnancy
CPT/HCPCS: 36415; 93005; 85379; 80053; 83735; 85025; 87636; 71046; 99285; 96374; 96376; J0696; 99284

== ENCOUNTER 2024-03-01 11:28 | Emergency (ER) | payer OTHER ==
[2024-03-01 11:35] VITALS: RESP 18; TEMP 98.9
--- NOTE | 2024-03-01 11:51 | ED ---
General Adult HPI - General Chief complaint: Shortness of Breath Stated complaint: THERON/28wks preg Time Seen by Provider: 03/01/24 11:48 Source: patient, RN notes reviewed Mode of arrival: ambulatory Limitations: no limitations - History of Present Illness Initial comments: 33-year-old female at 28 weeks gestation presenting with cough x 11 days. Patient states she was seen in the ER 8 days ago which she was diagnosed with pneumonia and placed on azithromycin. Patient states she was then seen at [facility] urgent care who placed her on cefdinir and steroids. Patient reports little improvement in her symptoms. States the cough is dry and worse at night. Denies fevers, chills, vomiting, abdominal/pelvic pain, vaginal bleeding, chest pain. - Related Data Home Medications Medication Instructions Recorded Confirmed Ciz-Lzsh-Stfad Acid 1 cap PO HS 02/22/24 02/26/24 [-U Capsule (formulary)] Cefdinir 300 mg PO BID 02/26/24 02/26/24 predniSONE 20 mg PO BID 02/26/24 02/26/24 Previous Rx's Medication Instructions Recorded Azithromycin [Zithromax Tri-Otis (3 500 mg PO DAILY 3 Days #3 tab 02/22/24 tabs)] guaiFENesin 200 mg PO Q4H PRN #30 tablet 03/01/24 Allergies Allergy/AdvReac Type Severity Reaction Status Date / Time nifedipine [From Procardia] AdvReac TACHYCARDIA Verified 02/26/24 08:30 Review of Systems ROS Statement: Those systems with pertinent positive or pertinent negative responses have been documented in the HPI. ROS Other: All systems not noted in ROS Statement are negative. Past Medical History Past Medical History: No Reported History Additional Past Medical History / Comment(s): Patient has a history of bipolar disorder with anxiety and depression and history of suicide attempt in the past. Patient has a history of asthma. Obstetric history: She has had one spontaneous and 3 vaginal deliveries. She's had care with me in this since the first trimester. Blood type is A+, antibody is negative, rubella immune, hepatitis B negative, HIV negative, GBS unknown. History of Any Multi-Drug Resistant Organisms: None Reported Past Surgical History: Ear Surgery Past Anesthesia/Blood Transfusion Reactions: No Reported Reaction Past Psychological History: Anxiety, Bipolar, Depression Smoking Status: Former smoker Past Alcohol Use History: None Reported Past Drug Use History: None Reported - Past Family History Father Family Medical History: No Reported History General Exam Limitations: no limitations General appearance: alert, in no apparent distress Head exam: Present: atraumatic, normocephalic, normal inspection Respiratory exam: Present: normal lung sounds bilaterally. Absent: respiratory distress, wheezes, rales, rhonchi, stridor Cardiovascular Exam: Present: regular rate, normal rhythm, normal heart sounds. Absent: systolic murmur, diastolic murmur, rubs, gallop, clicks GI/Abdominal exam: Present: soft, normal bowel sounds. Absent: distended, tenderness, guarding, rebound, rigid Neurological exam: Present: alert, oriented X3 Psychiatric exam: Present: normal affect, normal mood Skin exam: Present: warm, dry, intact, normal color. Absent: rash Course Vital Signs 03/01/24 11:29 Temperature 98.9 F Pulse Rate 86 Respiratory 18 Rate Blood Pressure 100/69 O2 Sat by Pulse 98 Oximetry Medical Decision Making - Medical Decision Making Was pt. sent in by a medical professional or institution (, PA, DISTANCE EDUCATION DIRECTOR, urgent care, hospital, or [facility]...) When possible be specific @ -No Did you speak to anyone other than the patient for history (EMS, parent, family, police, friend...)? What history was obtained from this source @ -No Did you review nursing and triage notes (agree or disagree)? Why? @ -I reviewed and agree with nursing and triage notes Were old charts reviewed (outside hosp., previous admission, EMS record, old EKG, old radiological studies, urgent care reports/EKG's, [facility] records)? Report findings @ -Previous ER visits chest x-ray reviewed which revealed streaky atelectasis left lung base Differential Diagnosis (chest pain, altered mental status, abdominal pain women, abdominal pain men, vaginal bleeding, weakness, fever, dyspnea, syncope, headache, dizziness, GI bleed, back pain, seizure, CVA, palpatations, mental health, musculoskeletal)? @ -Viral pneumonia, bacterial pneumonia, bronchitis, viral URI, COVID, influenza EKG interpreted by me (3pts min.). @ -None X-rays interpreted by me (1pt min.). @ -Chest x-ray reveals subtle subsegmental atelectasis or developing pneumonia at right lung base, streak atelectasis somewhat improved from comparison CT interpreted by me (1pt min.). @ -None done U/S interpreted by me (1pt. min.). @ -None done What testing was considered but not performed or refused? (CT, X-rays, U/S, labs)? Why? @ -None What meds were considered but not given or refused? Why? @ -None Did you discuss the management of the patient with other professionals (professionals i.e. , PA, DISTANCE EDUCATION DIRECTOR, lab, RT, psych nurse, social services analyst, health care specialist, teacher, information assurance officer, correctional casework specialist)? Give summary @ -No Was smoking cessation discussed for >3mins.? @ -No Was critical care preformed (if so, how long)? @ -No Were there social determinants of health that impacted care today? How? (Homelessness, low income, unemployed, alcoholism, drug addiction, transportat ion, low edu. Level, literacy, decrease access to med. care, residential, rehab)? @ -No Was there de-escalation of care discussed even if they declined (Discuss DNR or withdrawal of care, Hospice)? DNR status @ -No What co-morbidities impacted this encounter? (DM, HTN, Smoking, COPD, CAD, Cancer, CVA, ARF, Chemo, Hep., AIDS, mental health diagnosis, sleep apnea, morbid obesity)? @ -None Was patient admitted / discharged? Hospital course, mention meds given and route, prescriptions, significant lab abnormalities, going to OR and other pertinent info. @ -Discharged. This is a 33-year-old female at 28 weeks gestation presenting with cough x 11 days. Patient has taken azithromycin, cefdinir, and steroids with little relief. Denies fevers, chills, vomiting. Vital signs are within acceptable limits. Temperature is 98.9, heart rate 86 bpm, satting 98% on room air. Heart and lungs clear to auscultation bilaterally. No sign of respiratory distress. Chest x-ray reveals subtle segmental atelectasis or developing pneumonia at right lung base. Discussed findings with patient. Discussed with patient that symptoms are caused by viral pneumonia as patient has trialed multiple antibiotics with little relief. Supportive care discussed. Risks versus benefits of [id number] cough suppressants in discussed with patient. Advise close follow-up with PCP in 1 to 3 days. Return pr ecautions discussed. Case was discussed with my ED attending Dr. Denton. Discharged in stable condition. Undiagnosed new problem with uncertain prognosis? @ -No Drug Therapy requiring intensive monitoring for toxicity (Heparin, Nitro, Insulin, Cardizem)? @ -No Were any procedures done? @ -No Diagnosis/symptom? @ -Viral pneumonia Acute, or Chronic, or Acute on Chronic? @ -Acute Uncomplicated (without systemic symptoms) or Complicated (systemic symptoms)? @ -Uncomplicated Side effects of treatment? @ -No Exacerbation, Progression, or Severe Exacerbation? @ -No Poses a threat to life or bodily function? How? (Chest pain, USA, MD, pneumonia, PE, COPD, DKA, ARF, appy, cholecystitis, CVA, Diverticulitis, Homicidal, Suicidal, threat to staff... and all critical care pts) @ -No Disposition Clinical Impression: Viral pneumonia Disposition: HOME SELF-CARE Condition: Stable Instructions (If sedation given, give patient instructions): Viral Pneumonia (ED) Additional Instructions: Take guanfacine as needed for cough. Please return to the Emergency Department if symptoms worsen or any other concerns. Prescriptions: guaiFENesin 200 mg PO Q4H PRN #30 tablet PRN Reason: Cough Is patient prescribed a controlled substance at d/c from ED?: No Referrals: rAen Faria MD [Primary Care Provider] - 1-2 days Time of Disposition: 12:57
--- NOTE | 2024-03-01 12:02 | XR ---
EXAMINATION TYPE: XR chest 2V DATE OF EXAM: 03/01/2024 11:58 AM COMPARISON: 02/22/2024 CLINICAL INDICATION: Female, 33 years old with history of cough, TECHNIQUE: XR chest 2V view(s) obtained. FINDINGS: The heart size is normal. The pulmonary vasculature is normal. There is improving plate atelectasis left base. Subtle right basilar infiltrate may be present. Cons ider subsegmental atelectasis or early pneumonia otherwise appear clear. IMPRESSION: 1. There may be some subtle subsegmental atelectasis or developing pneumonia the right base. 2. Some streak atelectasis somewhat improved from comparison. [facility], , 03/01/2024 12:00 PM
[2024-03-01 13:05] VITALS: BP 107/72; PULSE 88
== END 2024-03-01 13:05 | disposition home or self-care (01) ==
LOC: EC 11:28
DX: O99.513 Diseases of the respiratory system complicating pregnancy, third trimester (principal); J12.9 Viral pneumonia, unspecified; Z88.8 Allergy status to other drugs, medicaments and biological substances; Z87.891 Personal history of nicotine dependence; Z3A.28 28 weeks gestation of pregnancy
CPT/HCPCS: 71046; 99285

== ENCOUNTER 2024-05-03 22:29 | Outpatient (CLI) | payer OTHER ==
[2024-05-04 01:29] VITALS: BP 129/74; PULSE 77; RESP 16; TEMP 97.9
== END 2024-05-04 01:11 | disposition home or self-care (01) ==
LOC: FBPOP 22:29
PROVIDERS: ATTEND Obstetrics & Gynecology
DX: Z53.9 Procedure and treatment not carried out, unspecified reason (principal)
CPT/HCPCS: 59025; 84112; G0463; 99213

== ENCOUNTER 2024-05-14 08:31 | Outpatient (CLI) | payer OTHER ==
[2024-05-14 10:16] VITALS: BP 112/71; PULSE 96; RESP 16; TEMP 97
== END 2024-05-14 10:08 | disposition home or self-care (01) ==
LOC: FBPOP 08:31
PROVIDERS: ATTEND Obstetrics & Gynecology
DX: Z53.9 Procedure and treatment not carried out, unspecified reason (principal)
CPT/HCPCS: 59025; G0463; 99213

== ENCOUNTER 2024-05-16 00:14 | Inpatient (IN) | payer OTHER ==
[2024-05-16] MEDS ORDERED: LIDOCAINE 0.5% (PF) 5 MG/ML (50 ML SDV) SQ PRN (00:35)
[2024-05-16] MEDS ORDERED: METHYLERGONOVINE 0.2 MG/ML 1 ML AMP IM PRN (00:35)
[2024-05-16] MEDS ORDERED: miSOPROStoL 200 MCG TAB PO PRN (00:35)
[2024-05-16] MEDS ORDERED: CARBOPROST TROMETHAMINE 250 MCG/ML 1 ML AMP IM PRN (00:35)
[2024-05-16] MEDS ORDERED: OXYTOCIN 10 UNIT/ML 1 ML VIAL IM PRN (00:35)
[2024-05-16] MEDS ORDERED: TERBUTALINE 1 MG/ML VIAL SQ PRN (00:35)
[2024-05-16] MEDS ORDERED: TRANEXAMIC 1,000 MG/100ML-NACL 1,000 MG in EMPTY BAG 1 BAG IV PRN (00:35)
[2024-05-16] MEDS ORDERED: miSOPROStoL 200 MCG TAB RECTAL PRN (00:35)
[2024-05-16] MEDS: LACTATED RINGERS 1,000 ML IV SCH (00:48)
[2024-05-16] MEDS ORDERED: BUTORPHANOL 1 MG/ML 1 ML VIAL IV PRN (01:14)
[2024-05-16 01:16] LABS: Basophils # (A) 0.1 k/uL (0-0.2); Basophils % (A) 1 %; Eosinophils # (A) 0.1 k/uL (0-0.7); Eosinophils % (A) 1 %; Lymphocytes # (A) 3.9 k/uL (1.0-4.8); Lymphocytes % (A) 31 %; MCH 29.1 pg (25.0-35.0); MCHC 34.3 g/dL (31.0-37.0); Mean Platelet Volume 7.6; Monocytes # (A) 0.9 k/uL (0-1.0); Monocytes % (A) 7 %; Neutrophils # (A) 7.1 k/uL (1.3-7.7); Neutrophils % (A) 58 %; Platelet Count 365 k/uL (150-450); RBC 4.12 m/uL (3.80-5.40); RDW 13.9 % (11.5-15.5); WBC 12.3 k/uL (3.8-10.6)
--- NOTE | 2024-05-16 01:21 | P.HPOB ---
History of Present Illness H&P Date: 05/16/24 Chief Complaint: 39-5/7 weeks, labor The patient is a 34-year-old 6 para 1-3-1-4 admitted at 39-5/7 weeks as established by last menstrual period and confirmed by second trimester ultrasound. She is admitted in active labor with all signs reassuring. She carries a history of 3 deliveries with 1 term delivery and did have an episode of contractions in the third trimester. On labor and delivery, her initial heart tones were category 2 with minimal variability but have now normalized to category 1 though there is a very low baseline. She is known to be group B strep positive and antibiotic prophylaxis has been started. Her was otherwise essentially uncomplicated. Obstetrical history: 6 para 1-3-1-4 with 1 term vaginal delivery and 3 late deliveries. Current statistics are listed in history of present illness. EDC of 05/18/2024 was established by last menstrual period confirmed by second trimester ultrasound. Laboratory workup demonstrates a blood type of A+ with a negative antibody screen. Rubella status is immune. The remainder of the laboratory workup was within normal limits. Early Glucola as well as second trimester Glucola were normal and group B strep status is positive. Gynecologic history: Unremarkable with no history of any infections though she carries a history of HSV for which she has been prophylaxed in the late third trimester. Review of Systems Review of systems is confined to history of present illness. Past Medical History Past Medical History: No Reported History Additional Past Medical History / Comment(s): Patient has a history of bipolar disorder with anxiety and depression and history of suicide attempt in the past. Patient has a history of asthma. Obstetric history: She has had one spontaneous and 3 vaginal deliveries. She's had care with me in this since the first trimester. Blood type is A+, antibody is negative, rubella immune, hepatitis B negative, HIV negative, GBS unknown. History of Any Multi-Drug Resistant Organisms: None Reported Past Surgical History: Ear Surgery Past Anesthesia/Blood Transfusion Reactions: No Reported Reaction Smoking Status: Never smoker - Past Family History Father Family Medical History: No Reported History Medications and Allergies Home Medications Medication Instructions Recorded Confirmed Type Lpn-Wvjz-Mioyx Acid 1 cap PO HS 02/22/24 05/14/24 History [-U Capsule (formulary)] Citalopram Hydrobromide [CeleXA] 10 mg PO DAILY 04/17/24 05/14/24 History lamoTRIgine [LaMICtal] 25 mg PO DAILY 04/17/24 05/14/24 History valACYclovir HCL [Valtrex] 500 mg PO DAILY 04/17/24 05/14/24 History Allergies Allergy/AdvReac Type Severity Reaction Status Date / Time nifedipine [From Procardia] AdvReac TACHYCARDIA Verified 05/16/24 00:50 Exam Intake and Output 05/15/24 05/15/24 05/16/24 14:59 22:59 06:59 Other: Weight 91.172 kg General, this is a well-developed, mild to moderately obese white female in discomfort as she is in labor. Her heart has a regular rhythm and rate without murmur. Her lungs are clear to auscultation bilateral in all gonzalez. Her abdomen is gravid, nondistended, has normal active bowel sounds, soft, nontender, and without any palpable masses aside from the uterine fundus. Her extremities are without any cyanosis, clubbing, or significant edema and are nontender to palpation bilaterally. Digital cervical examination or by the [facility] staff demonstrates her cervix to be 5 cm dilated, 80% effaced, with the vertex and presentation at -1-2 station. Drains are intact. Assessment and Plan (1) Group B streptococcal infection in Current Visit: Yes Status: Acute Code(s): O98.819 - OTH MATERNAL INFEC/PARASTC DISEASES COMP PREG, UNSP TRI; B95.1 - STREPTOCOCCUS, GROUP B, CAUSING DISEASES CLASSD ELSWHR SNOMED Code(s): 581766052 (2) Active labor at term Current Visit: Yes Status: Acute Code(s): RZE0245 - SNOMED Code(s): 27100362 Plan: Patient is scheduled for induction in the morning. She has presented in active labor tonight and she will have close maternal and surveillance and expectant management will be practiced. As she is group B strep positive, antibiotic prophylaxis has been started. We will attempt to keep her , maintain membranes as unruptured, until at least 4 hours after infusion of antibiotics in order to attempt to prophylax the baby. She is a good candidate for an epidural analgesia and has requested 1 which will be placed shortly.
[2024-05-16] MEDS ORDERED: ROPIVACAINE 5 MG/ML 30 ML VIAL ONE (01:27)
[2024-05-16] MEDS ORDERED: fentaNYL (PF) 50 MCG/ML 5 ML AMP ONE (01:27)
[2024-05-16] MEDS ORDERED: SODIUM CHLORIDE 0.9% 250 ML BAG ONE (01:27)
[2024-05-16] MEDS: AMPICILLIN 2,000 MG in SODIUM CHLORIDE 0.9% 100 ML IVPB ONE (02:20)
[2024-05-16] MEDS: OXYTOCIN 30 UNITS/500 ML NS 30 UNIT in SALINE 1 500ML.BAG IV SCH (03:25)
[2024-05-16] MEDS ORDERED: diphenhydrAMINE 50 MG CAP PO PRN (03:31)
[2024-05-16] MEDS ORDERED: SIMETHICONE 80 MG CHEWABLE PO PRN (03:31)
[2024-05-16] MEDS ORDERED: ZOLPIDEM 5 MG TAB PO PRN (03:31)
[2024-05-16] MEDS ORDERED: HYDROCORTISONE 2.5% RECTAL CREAM 30 GM TUBE RECTAL PRN (03:31)
[2024-05-16] MEDS ORDERED: diphenhydrAMINE 50 MG/ML 1 ML VIAL IVP PRN ×2 (03:31)
--- NOTE | 2024-05-16 03:35 | P.PROBDLV ---
Vaginal Delivery Note - . Vaginal Delivery Note: The patient is a 34-year-old 6 para 1-3-1-4 admitted at 39-5/7 weeks by good dating parameters. She is admitted in active labor with all signs reassuring. Her has been essentially uncomplicated though she did have an episode of labor in the third trimester which resolved. She is known to be group B strep positive and had antibiotic prophylaxis started. She progressed fairly quickly through the active phase of labor and an epidural cath eter was placed for analgesia. She underwent artificial rupture of membranes at anterior lip dilation for clear fluid. She progressed quickly then to complete and pushed over the course of 2-3 contractions to a normal spontaneous vaginal delivery of a viable 6 pound 13 ounce baby girl with Apgars of 8 at 1 minute and 9 at 5 minutes delivered in the direct occiput anterior position. There was a loose nuchal cord x 1 reduced after delivery of the infant. The placenta was delivered spontaneously, intact, grossly normal with a grossly normal three- vessel cord inserted approximately 2 cm from the margin of the placental disc. There were no lacerations of the perineum, vagina, or cervix. Estimated blood loss for the case was approximately 100 mL. There were no complications. Both mother and infant are resting comfortably in recovery.
[2024-05-16] MEDS: AMPICILLIN 1,000 MG in SODIUM CHLORIDE 0.9% 50 ML IVPB SCH (04:28)
[2024-05-16] MEDS: BENZOCAINE/MENTHOL SPRAY 1 GM/SPRAY AEROSOL TOPICAL PRN (04:40)
[2024-05-16] MEDS: IBUPROFEN 800 MG TAB PO PRN (06:34)
[2024-05-16] MEDS: diphenhydrAMINE 25 MG CAP PO PRN (06:35)
[2024-05-16] MEDS: SENNOSIDES-DOCUSATE SODIUM 1 EACH TAB PO SCH (08:12)
[2024-05-16] MEDS: ACETAMINOPHEN TAB 500 MG TAB PO PRN (12:19)
[2024-05-17 05:38] LABS: Basophils # (A) 0.1 k/uL (0-0.2); Basophils % (A) 1 %; Eosinophils # (A) 0.3 k/uL (0-0.7); Eosinophils % (A) 3 %; HCT 30.2 % (34.0-46.0); Lymphocytes # (A) 3.9 k/uL (1.0-4.8); Lymphocytes % (A) 32 %; MCH 28.3 pg (25.0-35.0); MCHC 32.8 g/dL (31.0-37.0); MCV 86.1 fL (80.0-100.0); Mean Platelet Volume 8.1; Monocytes # (A) 0.8 k/uL (0-1.0); Monocytes % (A) 6 %; Neutrophils # (A) 7.1 k/uL (1.3-7.7); Neutrophils % (A) 57 %; Platelet Count 289 k/uL (150-450); RDW 14.3 % (11.5-15.5); WBC 12.4 k/uL (3.8-10.6)
[2024-05-17 06:09] LABS: HGB 9.9 gm/dL (11.4-16.0)
--- NOTE | 2024-05-17 08:36 | P.DS ---
Providers Date of admission: 05/16/24 00:14 Expected date of discharge: 05/17/24 Attending physician: Haley Zavala Primary care physician: Stated None Hospital Course: 34 year old now PPD#1 s/p . The patient is doing well this morning and had no acute events overnight. She has no complaints this morning. She reports minimal lochia, passing flatus, voiding without difficulty, ambulating, and eating/drinking without nausea or vomiting. doing well at bedside. She denies chest pain, shortness of breathing, fevers, or chills overnight. She denies pain or swelling in the legs. restrictions are reviewed with the patient including pelvic rest for 6 weeks. The patient is encouraged to call the office if she experiences any heavy bleeding, foul-smelling discharge, breast complaints, or any if she has any other concerns. She will follow up in the office with in [address] Zavala for exam. All questions are answered. Patient Condition at Discharge: Good Plan - Discharge Summary New Discharge Prescriptions: New Azithromycin [Zithromax Z Pack] 1 tab PO DIRECTED #6 tab No Action Lbz-Canp-Sktue Acid [-U Capsule (formulary)] 1 cap PO HS lamoTRIgine [LaMICtal] 25 mg PO DAILY Citalopram Hydrobromide [CeleXA] 10 mg PO DAILY valACYclovir HCL [Valtrex] 500 mg PO DAILY Discharge Medication List Iuq-Jzrr-Azzwz Acid [-U Capsule (formulary)] 1 cap PO HS 02/22/24 [History] Citalopram Hydrobromide [CeleXA] 10 mg PO DAILY 04/17/24 [History] lamoTRIgine [LaMICtal] 25 mg PO DAILY 04/17/24 [History] valACYclovir HCL [Valtrex] 500 mg PO DAILY 04/17/24 [History] Azithromycin [Zithromax Z Pack] 1 tab PO DIRECTED #6 tab 05/17/24 [Rx] Discharge Disposition: HOME SELF-CARE
[2024-05-17 09:56] VITALS: BP 98/64; PULSE 68; RESP 16; TEMP 98
== END 2024-05-17 10:44 | disposition home or self-care (01) | DRG 560 ==
LOC: 4FBP 00:14
PROVIDERS: ADMIT Obstetrics & Gynecology; ATTEND Obstetrics & Gynecology
PROC: 10E0XZZ Delivery of Products of Conception, External Approach (ICD-10-PCS; principal; 2024-05-16)
PROC: 10907ZC Drainage of Amniotic Fluid, Therapeutic from Products of Conception, Via Natural or Artificial Opening (ICD-10-PCS; 2024-05-16)
DX: O69.81X0 Labor and delivery complicated by cord around neck, without compression, not applicable or unspecified (principal); O99.824 Streptococcus B carrier state complicating childbirth; F31.9 Bipolar disorder, unspecified; J45.909 Unspecified asthma, uncomplicated; O99.344 Other mental disorders complicating childbirth; O99.52 Diseases of the respiratory system complicating childbirth; Z37.0 Single live birth; Z91.51 Personal history of suicidal behavior; Z79.899 Other long term (current) drug therapy; Z88.8 Allergy status to other drugs, medicaments and biological substances; Z3A.39 39 weeks gestation of pregnancy
CPT/HCPCS: 85025; 86850; 86900; 86901